=== PATIENT | male | born 1970 | race Caucasian/White ===

== ENCOUNTER 2018-10-22 10:46 | Emergency (ER) | payer MEDICAID ==
[~2018-10-22] VITALS: Ht 193 cm; Wt 92.0 kg
[~2018-10-22 10:46] MED LIST: ALLO100T PO; CLIN-96 PO; FAMO-1 PO; IBUP-1984 PO; NO HOME MEDS
[2018-10-22 10:55] VITALS: BP 115/80
== END 2018-10-22 15:51 | disposition left against medical advice (07) ==
LOC: ER 10:46
DX: R10.9 Unspecified abdominal pain (principal); Z53.21 Procedure and treatment not carried out due to patient leaving prior to being seen by health care provider; Z79.899 Other long term (current) drug therapy

== ENCOUNTER 2018-11-17 21:45 | Emergency (ER) | payer MEDICAID ==
[~2018-11-17] VITALS: Ht 193 cm; Wt 220.0 kg
[2018-11-17] MEDS ORDERED: haloperidol lactate 5mg/ml inj IM ONE (22:05)
[2018-11-17] MEDS ORDERED: ondansetron/PF 4mg/2ml inj IV ONE (22:05)
[2018-11-17] MEDS ORDERED: diphenhydrAMINE 50 mg/ml inj IV ONE (22:05)
[2018-11-17] MEDS ORDERED: normal saline 1000ML IV soln IVB ONE (22:05)
[2018-11-17 22:17] LABS: BASOPHILS % (AUTO) 0.5 % (0-1); EOSINOPHILS % (AUTO) 0.5 % (0-6); HEMATOCRIT 43.6 % (42.0-52.0); HEMOGLOBIN 15.5 g/dl (14.0-17.9); LYMPHOCYTES # (AUTO) 0.7 X10'3 (1.1-4.8); LYMPHOCYTES % (AUTO) 8.9 % (21-51); MEAN CORPUSCULAR HEMOGLOBIN 30.6 PG (27.0-31.0); MEAN CORPUSCULAR HGB CONC 35.5 g/dL (33.0-36.5); MEAN CORPUSCULAR VOLUME 86.2 FL (78-98); MONOCYTES # (AUTO) 0.5 X10'3 (0-0.9); NEUTROPHILS # (AUTO) 6.5 X10'3 (1.8-7.7); NEUTROPHILS % (AUTO) 83.1 % (42-75); PLATELET COUNT 211 X10'3 (140-440); RED BLOOD COUNT 5.06 X10'6 (4.70-6.10); RED CELL DISTRIBUTION WIDTH 14.5 % (11.5-14.5); WHITE BLOOD COUNT 7.8 X10'3 (4.5-11.0)
[2018-11-17 22:29] LABS: ALANINE AMINOTRANSFERASE 20 U/L (12-78); ALBUMIN 3.9 G/DL (3.4-5.0); ALBUMIN/GLOBULIN RATIO 0.9 (1.1-1.5); ALKALINE PHOSPHATASE 101 IU/L (46-116); ANION GAP 6 (8-16); ASPARTATE AMINO TRANSFERASE 13 U/L (10-37); BLOOD UREA NITROGEN 17 MG/DL (7-18); BUN/CREATININE RATIO 16.2 (5.4-32.0); CALCIUM 9.6 MG/DL (8.5-10.1); CHLORIDE 99 MMOL/L (99-107); CREATININE 1.05 MG/DL (0.60-1.10); GLUCOSE 110 MG/DL (70-104); POTASSIUM 3.6 MMOL/L (3.5-5.1); SODIUM 137 MMOL/L (135-145); TOTAL CARBON DIOXIDE 32.1 MMOL/L (24-32); TOTAL PROTEIN 8.1 G/DL (6.4-8.2); eGFR 75 ML/MIN
[2018-11-17 23:05] VITALS: BP 152/71
[2018-11-17] MEDS ORDERED: ONDA4TAB6 PO (23:21)
[2018-11-17] MEDS ORDERED: sucralfate 1gm/10ml UD suspension PO STA (23:24)
[2018-11-17] MEDS ORDERED: mag hydrox/Alum hydrox/simeth 30ml oral suspension PO ONE (23:25)
[2018-11-17] MEDS ORDERED: LIDOcaine Viscous 15ml cup PO ONE (23:25)
--- NOTE | 2018-11-17 23:40 | NUR ---
VOMITED AFTER HE DRANK ABOUT 1/2 OF THE COCKTAIL, WENT TO BEDSIDE
[2018-11-17] MEDS ORDERED: proCHLORperazine 10 MG/2 ml inj IV STA (23:41)
[2018-11-17] MEDS ORDERED: morphine 4 MG/ML inj SYRINge IM STA (23:41)
[2018-11-17] MEDS ORDERED: morphine 4 MG/ML inj SYRINge IV STA (23:46)
== END 2018-11-17 23:59 | disposition home or self-care (01) ==
LOC: ER 21:45
DX: K22.6 Gastro-esophageal laceration-hemorrhage syndrome (principal); R11.2 Nausea with vomiting, unspecified; G89.29 Other chronic pain; F12.90 Cannabis use, unspecified, uncomplicated; F15.90 Other stimulant use, unspecified, uncomplicated; Z79.2 Long term (current) use of antibiotics; Z79.899 Other long term (current) drug therapy; Z56.0 Unemployment, unspecified
CPT/HCPCS: 36415; 80053; 85025; 85610; 86885; 86900; 86901; 96372; 96374; 96375; 99283; J0780; J1200; J1630; J2270; J2405; J7030

== ENCOUNTER 2019-01-18 02:35 | Inpatient (IN) | payer MEDICAID ==
[~2019-01-18] VITALS: Ht 193 cm; Wt 86.4 kg
[~2019-01-18 02:35] MED LIST changes: +ONDA4TAB6 PO
[2019-01-18] MEDS ORDERED: HYDROcodone/acetaminophen 5mg/325mg tablet PO ONE (03:20)
[2019-01-18 03:47] LABS: ALANINE AMINOTRANSFERASE 16 U/L (12-78); ALBUMIN 3.7 G/DL (3.4-5.0); ALBUMIN/GLOBULIN RATIO 0.7 (1.1-1.5); ALKALINE PHOSPHATASE 110 IU/L (46-116); ANION GAP 8 (8-16); ASPARTATE AMINO TRANSFERASE 16 U/L (10-37); BILIRUBIN,TOTAL 1.1 MG/DL (0.1-1.0); BLOOD UREA NITROGEN 19 MG/DL (7-18); BUN/CREATININE RATIO 17.9 (5.4-32.0); CALCIUM 9.8 MG/DL (8.5-10.1); CHLORIDE 93 MMOL/L (99-107); CREATININE 1.06 MG/DL (0.60-1.10); GLUCOSE 108 MG/DL (70-104); POTASSIUM 3.2 MMOL/L (3.5-5.1); SODIUM 133 MMOL/L (135-145); TOTAL CARBON DIOXIDE 31.8 MMOL/L (24-32); eGFR 74 ML/MIN
[2019-01-18] MEDS ORDERED: potassium Cl 20 mEq SR tablet PO ONE (03:55)
[2019-01-18 04:16] LABS: BASOPHILS % (AUTO) 0.4 % (0-1); EOSINOPHILS % (AUTO) 0.4 % (0-6); HEMATOCRIT 42.6 % (42.0-52.0); HEMOGLOBIN 14.3 g/dl (14.0-17.9); LYMPHOCYTES # (AUTO) 0.8 X10'3 (1.1-4.8); LYMPHOCYTES % (AUTO) 9.8 % (21-51); MEAN CORPUSCULAR HEMOGLOBIN 29.2 PG (27.0-31.0); MEAN CORPUSCULAR HGB CONC 33.6 g/dL (33.0-36.5); MEAN CORPUSCULAR VOLUME 86.8 FL (78-98); MEAN PLATELET VOLUME 9.6 FL (7.4-10.4); MONOCYTES # (AUTO) 0.8 X10'3 (0-0.9); MONOCYTES % (AUTO) 9.2 % (2-12); NEUTROPHILS # (AUTO) 6.7 X10'3 (1.8-7.7); NEUTROPHILS % (AUTO) 80.2 % (42-75); PLATELET COUNT 266 X10'3 (140-440); RED BLOOD COUNT 4.91 X10'6 (4.70-6.10); RED CELL DISTRIBUTION WIDTH 14.4 % (11.5-14.5); WHITE BLOOD COUNT 8.3 X10'3 (4.5-11.0)
--- NOTE | 2019-01-18 04:17 | NUR ---
PT VERY DRAMATICALLY REFUSED POTASSIUM PO. PLACED IN MOUTH AND THEN SPIT IT OUT ALL OVER THE ROOM. MD CARPENTER NOTIFIED. ALSO ASKED FOR URINE SAMPLE AND INFORMED HIM THAT HIS BLADDER APPEARED FULL UPON CT
[2019-01-18 04:54] LABS: CLARITY,URINE SLIGHTLY CLOUDY (Clear); COLOR,URINE YELLOW (Yellow); GLUCOSE, URINE NEGATIVE (Neg); KETONES,URINE NEGATIVE (Neg); LEUKOCYTE ESTERASE ,URINE TRACE (Neg); NITRITES, URINE NEGATIVE (Neg); OCCULT BLOOD,URINE TRACE-INTACT (Neg); PH,URINE 5.5 (4.8-8.0); PROTEIN,URINE TRACE mg/dl (Neg)
[2019-01-18 05:05] LABS: UA COLLECTION TYPE CLN CATCH MIDSTREAM
[2019-01-18 05:09] LABS: MUCUS STRANDS MANY /LPF (Neg); SQUAMOUS EPITHELIAL CELL,UR MODERATE /LPF (FEW)
[2019-01-18 05:11] LABS: BACTERIA,URINE FEW /HPF (Neg)
[2019-01-18] MEDS ORDERED: piperacillin/tazo 3.375gm/50ml 50 ML IV ONE (05:25)
[2019-01-18] MEDS ORDERED: normal saline 1000ML IV soln IV ONE (05:25)
[2019-01-18] MEDS ORDERED: ondansetron/PF 4mg/2ml inj IV ONE (05:30)
[2019-01-18] MEDS: morphine 4 MG/ML inj SYRINge IV PRN ×2 (05:42→07:48)
--- NOTE | 2019-01-18 06:00 | NUR ---
WHEN ASKED PT IF HE TAKES ANY HOME MEDS, PT STATES "METH." NOT ADDED TO MED REC
[2019-01-18] MEDS ORDERED: diatrozoate meglu/diatrozoate sod (37% iodine) 120ML oral solution PO ONE (06:10)
[2019-01-18] MEDS ORDERED: diatr meglu/diatrizoate 30ml oral sol.-(3 dose) bottle PO ONE (06:10)
[2019-01-18] MEDS ORDERED: pantoprazole 40 MG vial IV ONE (07:15)
[2019-01-18] MEDS ORDERED: ESOMEPRAZOLE 40 MG VIAL IV ONE (07:20)
--- NOTE | 2019-01-18 08:32 | NUR ---
ASSUMED CARE OF PT FROM ER. DID 2 NURSE SKIN CHECK, TECH CURRENTLY TAKING V/S. FILLED OUT PT BOARD
[2019-01-18 08:34] VITALS: BP 97/70
--- NOTE | 2019-01-18 08:39 | NUR ---
PT'S BP IS 97/70. QUESTIONED PT ABOUT THIS. HE STATES HIS BP IS ALWAYS NORMAL. THEN HE STATES HE HAS NOT SEEM A DR IN 3 YEARS. I ASKED PT IF HE FEELS DIZZY SOMETIMES. HE STATES YES! ALL THE TIME. SOMETIMES WHEN I GET UP I ALMOST PASS OUT AND AT BEDSIDE STATES SOEMTIMES HE DOES PASS OUT. WILL NOTIFY HOSPITALIST
--- NOTE | 2019-01-18 08:43 | NUR ---
WILL KEEP PT NPO UNTIL I CAN REACH HOSPITALIST. PT HAD CT WITH CONTRAST WAITING FOR RESULTS.
[2019-01-18] MEDS: normal saline 1000ml 1,000 ML IV SCH ×2 (09:17→21:10)
[2019-01-18] MEDS ORDERED: magnesium 2GM in 50ml NS 50 ML IV PRN (09:20)
[2019-01-18] MEDS ORDERED: potassium Cl 20 mEq SR tablet PO PRN ×2 (09:20)
[2019-01-18] MEDS ORDERED: potassium CL 10mEq/100ml bag 100 ML IV PRN ×2 (09:20)
[2019-01-18] MEDS ORDERED: magnesium 4gm in 100ml NS 100 ML IV PRN (09:20)
[2019-01-18] MEDS ORDERED: magnesium Cl slow-release 64mg tablet PO PRN (09:20)
[2019-01-18] MEDS ORDERED: acetaminophen 650mg rectal suppository RC PRN (09:20)
[2019-01-18] MEDS ORDERED: ondansetron/PF 4mg/2ml inj IV PRN (09:20)
[2019-01-18 11:00] VITALS: BP 95/55
[2019-01-18] MEDS: pantoprazole 40MG/NS 100ML BAG 100 ML IV SCH ×3 (12:31→22:21)
[2019-01-18] MEDS: morphine 2 MG/ML inj. syringe IV PRN ×2 (12:41→16:43)
--- NOTE | 2019-01-18 12:45 | NUR ---
MEDICATED FOR PAIN 01/14. WILL MONITOR
[2019-01-18] MEDS: K and/or MAG REPLACEMENT MC SCH (14:31)
[2019-01-18] MEDS: nicotine 14mg patch - 24hr TD SCH (16:43)
--- NOTE | 2019-01-18 18:18 | NUR ---
GAVE REPORT TO NORMA TAPIA
--- NOTE | 2019-01-18 18:52 | NUR ---
Patient in room [facility]. I have received report from Dilcia Bauer and had the opportunity to ask questions and assume patient care. Addendum: 01/18/19 at 1853 by Daina Nixon RN Amended: Links added.
[2019-01-18 20:00] VITALS: BP 85/47
--- NOTE | 2019-01-18 20:00 | NUR ---
pt resting eyes closed at bedside.
--- NOTE | 2019-01-18 22:00 | NUR ---
pt resting no s&s of distress at this time.
[2019-01-19] VITALS: BP 83/50
[2019-01-19] MEDS: morphine 2 MG/ML inj. syringe IV PRN ×2 (00:14→09:00)
--- NOTE | 2019-01-19 00:22 | NUR ---
pr awoke voided 600cc in the urinal then medicated for pain with morphine.
--- NOTE | 2019-01-19 01:10 | NUR ---
called Dr Quiñones regarding pt's low bp and potassium of 3.2. orders received for iv bolus and replacement.
[2019-01-19] MEDS ORDERED: normal saline 1000ml 1,000 ML IV ONE (01:15)
[2019-01-19] MEDS ORDERED: magnesium Cl slow-release 64mg tablet PO PRN (01:15)
[2019-01-19] MEDS ORDERED: potassium Cl 20 mEq SR tablet PO PRN ×2 (01:15)
[2019-01-19 02:20] LABS: ALBUMIN 2.4 G/DL (3.4-5.0); ANION GAP 7 (8-16); BLOOD UREA NITROGEN 15 MG/DL (7-18); BUN/CREATININE RATIO 18.3 (5.4-32.0); CALCIUM 8.5 MG/DL (8.5-10.1); CHLORIDE 106 MMOL/L (99-107); CREATININE 0.82 MG/DL (0.60-1.10); GLUCOSE 70 MG/DL (70-104); POTASSIUM 3.7 MMOL/L (3.5-5.1); SODIUM 138 MMOL/L (135-145); TOTAL CARBON DIOXIDE 24.7 MMOL/L (24-32); eGFR > 90 ML/MIN
[2019-01-19 02:29] LABS: BASOPHILS % (AUTO) 0.8 % (0-1); EOSINOPHILS % (AUTO) 1.2 % (0-6); HEMATOCRIT 33.1 % (42.0-52.0); HEMOGLOBIN 11.2 g/dl (14.0-17.9); LYMPHOCYTES # (AUTO) 0.8 X10'3 (1.1-4.8); LYMPHOCYTES % (AUTO) 19.3 % (21-51); MEAN CORPUSCULAR HEMOGLOBIN 29.2 PG (27.0-31.0); MEAN CORPUSCULAR HGB CONC 33.7 g/dL (33.0-36.5); MEAN CORPUSCULAR VOLUME 86.7 FL (78-98); MEAN PLATELET VOLUME 9.3 FL (7.4-10.4); MONOCYTES # (AUTO) 0.4 X10'3 (0-0.9); MONOCYTES % (AUTO) 8.6 % (2-12); NEUTROPHILS # (AUTO) 2.9 X10'3 (1.8-7.7); NEUTROPHILS % (AUTO) 70.1 % (42-75); PLATELET COUNT 149 X10'3 (140-440); RED BLOOD COUNT 3.82 X10'6 (4.70-6.10); RED CELL DISTRIBUTION WIDTH 14.2 % (11.5-14.5); WHITE BLOOD COUNT 4.1 X10'3 (4.5-11.0)
--- NOTE | 2019-01-19 03:00 | NUR ---
resting eyes closed without changes.
[2019-01-19] MEDS: pantoprazole 40MG/NS 100ML BAG 100 ML IV SCH ×5 (03:11→19:54)
--- NOTE | 2019-01-19 04:32 | NUR ---
remains resting without change.
[2019-01-19] MEDS: normal saline 1000ml 1,000 ML IV SCH ×2 (05:17→09:11)
--- NOTE | 2019-01-19 05:22 | NUR ---
pt resting eyes closed without changes.
--- NOTE | 2019-01-19 06:20 | NUR ---
Problems reprioritized. Patient report given, questions answered & plan of care reviewed with Gloria Bauer. Addendum: 01/19/19 at 0621 by Daina Nixon RN Amended: Links added.
--- NOTE | 2019-01-19 06:21 | NUR ---
pt admit done endorced MRSA swab to be done by day Rn in report.
--- NOTE | 2019-01-19 06:30 | NUR ---
Patient in room [facility]. I have received report from Mishel TAPIA and had the opportunity to ask questions and assume patient care.
[2019-01-19 07:00] VITALS: BP 104/57
[2019-01-19] MEDS: K and/or MAG REPLACEMENT MC SCH (08:00)
[2019-01-19] MEDS: nicotine 14mg patch - 24hr TD SCH (08:54)
[2019-01-19 11:00] VITALS: BP 98/52
[2019-01-19] MEDS ORDERED: levoFLOXACIN-Levaquin 500mg/D5 100 ML IV SCH (11:50)
--- NOTE | 2019-01-19 13:10 | NUR ---
Went to hang patients IV antibiotics per Md orders and patient was sticking something in his mouth. When I asked patient if he was eating he stated no. I did find out patient was eating a mint I educated patient on the reason why he is not eating anything at this time and at bedside. Per patient has been drinking water today. I again educated patient and encouraged him not to be eating and when Dr Kapoor does his rounds we will ask if he can get a diet ordered. Patient verbalized understanding.
--- NOTE | 2019-01-19 13:39 | NUR ---
Malnutrition/calorie count consults: Pt admit w/ localized small bowel perforation in first or second portion of duodenum per MD note. Hx GERD and prior perforated pyloric ulcer. Per MD note non-surgical management at this time w/ IV PPI. Pt has been NPO since admit; DEMETRIUS d/w RN who reports calorie count not indicated at this time and pt is tall slender man but appears healthy weight. Pt has no edema, wounds, weakness, and all prior wts pt stated. At this time pt does not meet minimum malnutrition criteria. Will continue to monitor. Addendum: 01/19/19 at [address] Amended: Links added.
[2019-01-19] MEDS: piperacillin/tazo 3.375gm/50ml 50 ML IV SCH ×2 (16:00→16:08)
--- NOTE | 2019-01-19 16:27 | NUR ---
Patients 1435 dose hung at 1600. 1600 dose not ran since pharmacy did not get dose up here until late.
--- NOTE | 2019-01-19 18:39 | NUR ---
Problems reprioritized. Patient report given, questions answered & plan of care reviewed with Mishel TAPIA.
--- NOTE | 2019-01-19 18:47 | NUR ---
Patient in room [facility]. I have received report from Gloria Bauer and had the opportunity to ask questions and assume patient care. Addendum: 01/19/19 at 1847 by Daina Nixon RN Amended: Links added.
[2019-01-19 19:31] VITALS: BP 100/63
[2019-01-19] MEDS: lactobacillus rhamnosus 10,000 MMU CELLS/CAPSULE PO SCH (22:34)
[2019-01-20 00:24] VITALS: BP 104/69
[2019-01-20] MEDS: piperacillin/tazo 3.375gm/50ml 50 ML IV SCH ×2 (00:30→08:05)
--- NOTE | 2019-01-20 00:31 | NUR ---
pt a/o denies pain awoke briefly at this time.
[2019-01-20] MEDS: pantoprazole 40MG/NS 100ML BAG 100 ML IV SCH ×2 (00:51→06:54)
[2019-01-20] MEDS: normal saline 1000ml 1,000 ML IV SCH (01:17)
--- NOTE | 2019-01-20 02:53 | NUR ---
pt resting eyes closed without changes at this time.
--- NOTE | 2019-01-20 04:23 | NUR ---
resting eyes closed without changes or s&s of distress at this time.
[2019-01-20 05:14] LABS: EOSINOPHILS # (AUTO) 0.1 X10'3 (0-0.9); MEAN PLATELET VOLUME 9.4 FL (7.4-10.4); MONOCYTES # (AUTO) 0.3 X10'3 (0-0.9); WHITE BLOOD COUNT 3.3 X10'3 (4.5-11.0)
[2019-01-20 05:16] LABS: BASOPHILS % (AUTO) 0.9 % (0-1); EOSINOPHILS % (AUTO) 1.8 % (0-6); HEMATOCRIT 36.2 % (42.0-52.0); HEMOGLOBIN 12.2 g/dl (14.0-17.9); LYMPHOCYTES % (AUTO) 29.6 % (21-51); MEAN CORPUSCULAR HGB CONC 33.8 g/dL (33.0-36.5); MEAN CORPUSCULAR VOLUME 85.7 FL (78-98); MONOCYTES % (AUTO) 8.7 % (2-12); NEUTROPHILS # (AUTO) 1.9 X10'3 (1.8-7.7); PLATELET COUNT 167 X10'3 (140-440); RED BLOOD COUNT 4.22 X10'6 (4.70-6.10); RED CELL DISTRIBUTION WIDTH 14.1 % (11.5-14.5)
[2019-01-20 05:27] LABS: ALBUMIN 2.5 G/DL (3.4-5.0); ANION GAP 7 (8-16); BLOOD UREA NITROGEN 10 MG/DL (7-18); CALCIUM 8.6 MG/DL (8.5-10.1); CHLORIDE 106 MMOL/L (99-107); CREATININE 0.91 MG/DL (0.60-1.10); GLUCOSE 79 MG/DL (70-104); POTASSIUM 3.5 MMOL/L (3.5-5.1); SODIUM 139 MMOL/L (135-145); TOTAL CARBON DIOXIDE 26.1 MMOL/L (24-32); eGFR 88 ML/MIN
--- NOTE | 2019-01-20 05:52 | NUR ---
resting no changes.
--- NOTE | 2019-01-20 06:50 | NUR ---
Problems reprioritized. Patient report given, questions answered & plan of care reviewed with Yessi Bauer. Addendum: 01/20/19 at 0650 by Daina Nixon RN Amended: Links added.
--- NOTE | 2019-01-20 06:53 | NUR ---
Patient in room [facility]. I have received report from Daina TAPIA and had the opportunity to ask questions and assume patient care.
[2019-01-20 07:00] VITALS: BP 103/64
[2019-01-20] MEDS: lactobacillus rhamnosus 10,000 MMU CELLS/CAPSULE PO SCH (08:05)
[2019-01-20] MEDS: nicotine 14mg patch - 24hr TD SCH (08:06)
[2019-01-20] MEDS: K and/or MAG REPLACEMENT MC SCH (08:09)
[2019-01-20] MEDS: pantoprazole 40mg Tablet.DR PO SCH (10:56)
[2019-01-20 11:00] VITALS: BP 99/66
[2019-01-20] MEDS: amoxicillin 250mg capsule PO SCH (16:24)
--- NOTE | 2019-01-20 18:24 | NUR ---
Problems reprioritized. Patient report given, questions answered & plan of care reviewed with Alfred TAPIA.
[2019-01-20 18:40] VITALS: BP 115/70
[2019-01-20] MEDS: clarithromycin 250mg tablet PO SCH (20:43)
[2019-01-21] VITALS: BP 104/74
[2019-01-21] MEDS: amoxicillin 250mg capsule PO SCH ×2 (00:07→07:39)
[2019-01-21 05:18] LABS: BASOPHILS % (AUTO) 1.1 % (0-1); EOSINOPHILS # (AUTO) 0.1 X10'3 (0-0.9); HEMATOCRIT 35.4 % (42.0-52.0); HEMOGLOBIN 12.3 g/dl (14.0-17.9); LYMPHOCYTES % (AUTO) 31.1 % (21-51); MEAN CORPUSCULAR HEMOGLOBIN 29.2 PG (27.0-31.0); MEAN CORPUSCULAR HGB CONC 34.7 g/dL (33.0-36.5); MEAN CORPUSCULAR VOLUME 84.2 FL (78-98); MEAN PLATELET VOLUME 9.6 FL (7.4-10.4); MONOCYTES # (AUTO) 0.4 X10'3 (0-0.9); MONOCYTES % (AUTO) 10.7 % (2-12); NEUTROPHILS # (AUTO) 1.8 X10'3 (1.8-7.7); NEUTROPHILS % (AUTO) 55.1 % (42-75); PLATELET COUNT 188 X10'3 (140-440); RED CELL DISTRIBUTION WIDTH 14.1 % (11.5-14.5); WHITE BLOOD COUNT 3.3 X10'3 (4.5-11.0)
[2019-01-21 05:29] LABS: ALBUMIN 2.7 G/DL (3.4-5.0); ANION GAP 7 (8-16); BLOOD UREA NITROGEN 5 MG/DL (7-18); BUN/CREATININE RATIO 6.1 (5.4-32.0); CALCIUM 9.3 MG/DL (8.5-10.1); CHLORIDE 106 MMOL/L (99-107); CREATININE 0.82 MG/DL (0.60-1.10); GLUCOSE 86 MG/DL (70-104); MAGNESIUM 2.1 MG/DL (1.5-2.4); POTASSIUM 3.3 MMOL/L (3.5-5.1); SODIUM 140 MMOL/L (135-145); TOTAL CARBON DIOXIDE 26.7 MMOL/L (24-32); eGFR > 90 ML/MIN
--- NOTE | 2019-01-21 06:44 | NUR ---
Problems reprioritized. Patient report given, questions answered & plan of care reviewed with JASSON. Addendum: 01/21/19 at 0644 by Poncho Manzanares RN Amended: Links added.
[2019-01-21 07:00] VITALS: BP 104/67
[2019-01-21] MEDS: K and/or MAG REPLACEMENT MC SCH (07:38)
[2019-01-21] MEDS: clarithromycin 250mg tablet PO SCH (07:39)
[2019-01-21] MEDS: pantoprazole 40mg Tablet.DR PO SCH (07:39)
[2019-01-21] MEDS: nicotine 14mg patch - 24hr TD SCH (07:40)
--- NOTE | 2019-01-21 10:02 | NUR ---
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 Pt on PPIs for tx. Pt on a full liquid diet with documented 100% PO intake. Pt with no N/V per MD notes. LB 01/20. No edema or wounds. No nutrition diagnosis at this time. Will continue to follow. Recommendations: 1) Advance to regular diet as medically indicated 2) Wt per rx Addendum: 01/21/19 at [address] Amended: Links added.
[2019-01-21 11:00] VITALS: BP 98/62
[2019-01-21] MEDS ORDERED: AMO250C PO (11:01)
[2019-01-21] MEDS ORDERED: PANT40TA4 PO (11:01)
[2019-01-21] MEDS ORDERED: CLAR250T39 PO (11:01)
--- NOTE | 2019-01-21 16:39 | NUR ---
Patient discharged home via girlfriend and ambulated off of the unit. Patient was alert and oriented and in no apparent distress at time of discharge. Patient PIVs removed with canula intact. Patient was waiting for ride for several hours and therefore left after the two hours from time of order. Patient took all belongings with him including new medication that was given with Felix's bedside delivery. Patient stated an understanding of discharge instructions and was given time for question and answers. patient K was 3.3 this AM and was given 40 mEq of K-dur tablets today.
== END 2019-01-21 15:00 | disposition home or self-care (01) | DRG 241 ==
LOC: ER 02:35 → SUR 3N 08:01
PROVIDERS: ADMIT Internal Medicine; ATTEND Family Medicine
DX: K25.5 Chronic or unspecified gastric ulcer with perforation (principal); E87.6 Hypokalemia; F12.90 Cannabis use, unspecified, uncomplicated; K21.9 Gastro-esophageal reflux disease without esophagitis; K43.2 Incisional hernia without obstruction or gangrene; F17.220 Nicotine dependence, chewing tobacco, uncomplicated; G89.29 Other chronic pain; F15.90 Other stimulant use, unspecified, uncomplicated
CPT/HCPCS: 36415; 74150; 74176; 80048; 80053; 81001; 83605; 83735; 85025; 85610; 86885; 86900; 86901; 87040; 87081; 87088; 96365; 96375; 99285; C9113; G0378; J1956; J2270; J2405; J2543; J3480; J7030; Q9963

== ENCOUNTER 2019-02-23 05:48 | Emergency (ER) | payer MEDICAID ==
[~2019-02-23] VITALS: Ht 193 cm; Wt 100.0 kg
[~2019-02-23 05:48] MED LIST changes: -ALLO100T PO; +AMO250C PO; +CLAR250T39 PO; -CLIN-96 PO; -FAMO-1 PO; -IBUP-1984 PO; -NO HOME MEDS; -ONDA4TAB6 PO; +PANT40TA4 PO
[2019-02-23] MEDS ORDERED: normal saline 1000ML IV soln IVB ONE (06:30)
[2019-02-23] MEDS ORDERED: ondansetron/PF 4mg/2ml inj IV ONE (06:30)
[2019-02-23] MEDS: diatr meglu/diatrizoate 30ml oral sol.-(3 dose) bottle PO SCH ×3 (06:44→08:10)
[2019-02-23] MEDS: morphine 4 MG/ML inj SYRINge IV PRN ×2 (06:59→08:16)
[2019-02-23 07:20] LABS: BASOPHILS % (AUTO) 0.5 % (0-1); EOSINOPHILS % (AUTO) 0.1 % (0-6); HEMATOCRIT 44.1 % (42.0-52.0); HEMOGLOBIN 14.8 g/dl (14.0-17.9); LYMPHOCYTES # (AUTO) 0.6 X10'3 (1.1-4.8); LYMPHOCYTES % (AUTO) 7.8 % (21-51); MEAN CORPUSCULAR HEMOGLOBIN 29.3 PG (27.0-31.0); MEAN CORPUSCULAR HGB CONC 33.7 g/dL (33.0-36.5); MEAN CORPUSCULAR VOLUME 86.9 FL (78-98); MONOCYTES # (AUTO) 0.5 X10'3 (0-0.9); NEUTROPHILS # (AUTO) 6.8 X10'3 (1.8-7.7); NEUTROPHILS % (AUTO) 85.6 % (42-75); PLATELET COUNT 216 X10'3 (140-440); RED BLOOD COUNT 5.07 X10'6 (4.70-6.10); RED CELL DISTRIBUTION WIDTH 15.8 % (11.5-14.5)
[2019-02-23 07:35] LABS: ALANINE AMINOTRANSFERASE 27 U/L (12-78); ALBUMIN 4.1 G/DL (3.4-5.0); ALKALINE PHOSPHATASE 98 IU/L (46-116); ANION GAP 11 (8-16); ASPARTATE AMINO TRANSFERASE 24 U/L (10-37); BILIRUBIN,TOTAL 0.8 MG/DL (0.1-1.0); BLOOD UREA NITROGEN 14 MG/DL (7-18); BUN/CREATININE RATIO 15.2 (5.4-32.0); CALCIUM 9.9 MG/DL (8.5-10.1); CHLORIDE 101 MMOL/L (99-107); CREATININE 0.92 MG/DL (0.60-1.10); GLUCOSE 109 MG/DL (70-104); LIPASE 78 U/L (73-393); POTASSIUM 4.2 MMOL/L (3.5-5.1); SODIUM 141 MMOL/L (135-145); TOTAL CARBON DIOXIDE 29.5 MMOL/L (24-32); TOTAL PROTEIN 8.4 G/DL (6.4-8.2); eGFR 87 ML/MIN
[2019-02-23] MEDS ORDERED: iohexol 300mg/ml 100ml inj. ONE (08:21)
--- NOTE | 2019-02-23 08:25 | NUR ---
pt out to ct via robby with abstract clerk
[2019-02-23 08:31] LABS: CLARITY,URINE CLEAR (Clear); COLOR,URINE YELLOW (Yellow); GLUCOSE, URINE NEGATIVE (Neg); KETONES,URINE >=80 mg/dl (Neg); LEUKOCYTE ESTERASE ,URINE NEGATIVE (Neg); NITRITES, URINE NEGATIVE (Neg); OCCULT BLOOD,URINE TRACE-INTACT (Neg); PH,URINE 6.5 (4.8-8.0); PROTEIN,URINE TRACE mg/dl (Neg)
[2019-02-23 08:37] LABS: UA COLLECTION TYPE URINAL
[2019-02-23 08:44] LABS: SQUAMOUS EPITHELIAL CELL,UR MODERATE /LPF (FEW)
[2019-02-23 08:45] LABS: BACTERIA,URINE FEW /HPF (Neg); HYALINE CASTS 0-3 /LPF (NEGATIVE); RBC,URINE 0-2 /HPF (0-2); WBC,URINE 0-4 /HPF (0-4)
--- NOTE | 2019-02-23 08:51 | NUR ---
pt returns from ct
[2019-02-23] MEDS ORDERED: PANT-47 PO (09:16)
[2019-02-23] MEDS ORDERED: acetaminophen 325mg tablet PO ONE (09:30)
[2019-02-23 09:32] VITALS: BP 134/79
[2019-04-02] MEDS ORDERED: PANT-47 PO (13:58)
== END 2019-02-23 09:34 | disposition home or self-care (01) ==
LOC: ER 05:49
DX: K43.9 Ventral hernia without obstruction or gangrene (principal); R11.2 Nausea with vomiting, unspecified; K21.9 Gastro-esophageal reflux disease without esophagitis; G89.29 Other chronic pain; F17.220 Nicotine dependence, chewing tobacco, uncomplicated; F12.90 Cannabis use, unspecified, uncomplicated; F15.90 Other stimulant use, unspecified, uncomplicated; F10.99 Alcohol use, unspecified with unspecified alcohol-induced disorder; Z98.890 Other specified postprocedural states; Z56.0 Unemployment, unspecified; Z79.899 Other long term (current) drug therapy; Y90.9 Presence of alcohol in blood, level not specified
CPT/HCPCS: 36415; 74177; 80053; 81001; 83690; 85025; 85610; 96361; 96374; 96375; 96376; 99284; J2270; J2405; J7030; Q9963; Q9967

== ENCOUNTER 2019-04-07 05:29 | Day surgery (SDC) | payer MEDICAID ==
[2019-04-02 14:06] LABS: EOSINOPHILS # (AUTO) 0.1 X10'3 (0-0.9); EOSINOPHILS % (AUTO) 2.3 % (0-6); LYMPHOCYTES # (AUTO) 0.9 X10'3 (1.1-4.8); LYMPHOCYTES % (AUTO) 17.7 % (21-51); MEAN CORPUSCULAR HEMOGLOBIN 29.2 PG (27.0-31.0); MEAN CORPUSCULAR HGB CONC 33.1 g/dL (33.0-36.5); MEAN CORPUSCULAR VOLUME 88.2 FL (78-98); MEAN PLATELET VOLUME 8.5 FL (7.4-10.4); MONOCYTES # (AUTO) 0.6 X10'3 (0-0.9); MONOCYTES % (AUTO) 11.3 % (2-12); NEUTROPHILS # (AUTO) 3.4 X10'3 (1.8-7.7); NEUTROPHILS % (AUTO) 67.7 % (42-75); PRE OP HEMATOCRIT 39.6 % (42.0-52.0); PRE OP HEMOGLOBIN 13.1 g/dL (14.0-17.9); PRE OP PLATELET COUNT 171 X10'3 (140-440); RED BLOOD COUNT 4.49 X10'6 (4.70-6.10); RED CELL DISTRIBUTION WIDTH 15.6 % (11.5-14.5)
[2019-04-02 14:20] LABS: ALBUMIN 3.7 G/DL (3.4-5.0); ALKALINE PHOSPHATASE 70 IU/L (46-116); BLOOD UREA NITROGEN 18 MG/DL (7-18); BUN/CREATININE RATIO 21.7 (5.4-32.0); CALCIUM 9.7 MG/DL (8.5-10.1); CHLORIDE 106 MMOL/L (99-107); CREATININE 0.83 MG/DL (0.60-1.10); PRE OP ALT 19 U/L (30-65); PRE OP ANION GAP 5 (8-16); PRE OP AST 15 U/L (10-37); PRE OP BILIRUB, TOTAL 0.4 MG/DL (0.0-1.0); PRE OP GLUCOSE 91 MG/DL (70-104); PRE OP POTASSIUM 4.6 MMOL/L (3.4-5.1); PRE OP SODIUM 142 MMOL/L (135-145); TOTAL PROTEIN 7.4 G/DL (6.4-8.2); eGFR > 90 ML/MIN
[~2019-04-07] VITALS: Ht 162.6 cm; Wt 89.0 kg
[2019-04-07] VITALS (12 sets, daily range): BP systolic 122–143; BP diastolic 76–98
[~2019-04-07 05:29] MED LIST changes: -AMO250C PO; -CLAR250T39 PO; +PANT-47 PO; -PANT40TA4 PO
[2019-04-07] MEDS ORDERED: ringers solution, lacted 1,000 ML IV SCH ×2 (05:30→08:00)
[2019-04-07] MEDS ORDERED: cefazolin/dext.iso 2gm/50ml 50 ML IV ONE (05:30)
[2019-04-07] MEDS ORDERED: famotidine 20mg tablet PO ONE (05:30)
[2019-04-07] MEDS ORDERED: LIDOcaine 1% (10mg/ml) 2ml vial ONE (06:05)
[2019-04-07] MEDS ORDERED: ketorolac trometh. 30mg/ml inj. ONE (06:34)
[2019-04-07] MEDS ORDERED: ROPIVAcaine 0.5% (5mg/ml) 30ml vial ONE (06:34)
[2019-04-07] MEDS ORDERED: LIDOcaine 1% 30ml preserv. free vial ONE (06:43)
[2019-04-07] MEDS ORDERED: BUPIVAcaine/PF 2.5 mg/ml (0.25%) 30ml vial ONE (06:43)
[2019-04-07] MEDS ORDERED: fentaNYL/PF 50MCG/1 ML 2ML syringe ONE ×3 (07:18→08:02)
[2019-04-07] MEDS ORDERED: midazolam 2 mg/2 ml injection ONE (07:18)
[2019-04-07] MEDS ORDERED: sevoflurane 250ml liquid IH ONE (07:19)
[2019-04-07] MEDS ORDERED: glycopyrrolate 0.2mg/ml inj ONE (07:19)
[2019-04-07] MEDS ORDERED: rocuronium 10mg/ml inj IV ONE ×2 (07:19→07:22)
[2019-04-07] MEDS ORDERED: LIDOcaine 2% (20mg/ml) 5ml vial ONE (07:22)
[2019-04-07] MEDS ORDERED: propofol inj 20 ML IV ONE (07:22)
[2019-04-07] MEDS ORDERED: ondansetron/PF 4mg/2ml inj IV PRN (08:00)
[2019-04-07] MEDS ORDERED: proCHLORperazine 10 MG/2 ml inj IV PRN (08:00)
[2019-04-07] MEDS ORDERED: meperidine/PF 25mg/ml syringe IV PRN ×2 (08:00)
[2019-04-07] MEDS ORDERED: morphine 4 MG/ML inj SYRINge IV PRN ×2 (08:00)
[2019-04-07] MEDS ORDERED: sugammadex 200mg/2ml injection IV ONE (09:22)
--- NOTE | 2019-04-07 09:50 | NUR ---
Received from OR via BED , accompanied by Anesthesiologist DR JAMES and report given by Anesthesiolgist. PATIENT WAKING UP, NO S/S OF PAIN, V/S WNL, NEUROVASCULAR CHECKS INTACT, 20G PIV RUE, SCD ON, 4 BANDAIDS TO LAP SIGHTS OF ABDOMEN CDI WITH ABDOMINAL BINDER ON.
[2019-04-07] MEDS: meperidine/PF 25mg/ml syringe IV PRN ×2 (10:08→10:18)
[2019-04-07] MEDS ORDERED: dexamethasone sod phosphate 4mg/ml inj. ONE (10:10)
[2019-04-07] MEDS ORDERED: ondansetron/PF 4mg/2ml inj ONE (10:10)
[2019-04-07] MEDS ORDERED: oxyCODONE/APAP 10/325mg tablet PO ONE (10:15)
--- NOTE | 2019-04-07 11:30 | NUR ---
PATIENT A&OX4, DENIES PAIN, V/S WNL, NEUROVASCULAR CHECKS INTACT, 20G PIV RUE D/C, SCD OFF, 4 BANDAIDS TO LAP SIGHTS OF ABDOMEN CDI W/ ABDOMINAL BINDER ON. I HAVE REVIEWED D/C INSTRUCTIONS WITH PATIENT AND FAMILY HAVE VERBALIZED UNDERSTANDING. SCRIPTS GIVEN FOR PAIN MEDS. PATIENT WAS D/C HOME WITH ALL BELONGINGS AND FAMILY GAVE TRANSPORT HOME.
== END 2019-04-07 11:30 | disposition home or self-care (01) ==
LOC: PAS 05:29
PROVIDERS: ATTEND Surgery
DX: K43.0 Incisional hernia with obstruction, without gangrene (principal); M10.9 Gout, unspecified; F17.290 Nicotine dependence, other tobacco product, uncomplicated; Z79.899 Other long term (current) drug therapy; Z87.11 Personal history of peptic ulcer disease; Z80.9 Family history of malignant neoplasm, unspecified
CPT/HCPCS: 36415; 49655; 80053; 82948; 85025; 93005; C1781; C9399; J1100; J1885; J2001; J2175; J2250; J2405; J2704; J3010; J3490; J7120; S2900; A4215; A4618; J2795

== ENCOUNTER 2019-04-16 22:55 | Inpatient (IN) | payer MEDICAID ==
[~2019-04-16] VITALS: Ht 193 cm; Wt 90.9 kg
[2019-04-16] MEDS ORDERED: vancomycin/NS 1 GM ADD-VANTAGE 250 ML IV ONE (23:10)
[2019-04-16] MEDS ORDERED: piperacillin/tazo 3.375gm/50ml 50 ML IV ONE (23:10)
[2019-04-16] MEDS ORDERED: normal saline 1000ML IV soln IV ONE (23:10)
[2019-04-16 23:30] LABS: BASOPHILS % (AUTO) 0.4 % (0-1); EOSINOPHILS % (AUTO) 0.2 % (0-6); HEMATOCRIT 38.7 % (42.0-52.0); HEMOGLOBIN 13.2 g/dl (14.0-17.9); LYMPHOCYTES # (AUTO) 0.4 X10'3 (1.1-4.8); MEAN CORPUSCULAR HEMOGLOBIN 29.4 PG (27.0-31.0); MEAN CORPUSCULAR VOLUME 86.4 FL (78-98); MONOCYTES # (AUTO) 0.7 X10'3 (0-0.9); MONOCYTES % (AUTO) 6.6 % (2-12); NEUTROPHILS # (AUTO) 9.8 X10'3 (1.8-7.7); NEUTROPHILS % (AUTO) 88.8 % (42-75); PLATELET COUNT 212 X10'3 (140-440); RED BLOOD COUNT 4.48 X10'6 (4.70-6.10); RED CELL DISTRIBUTION WIDTH 15.1 % (11.5-14.5)
[2019-04-16 23:43] LABS: PARTIAL THROMBOPLASTIN TIME 28 SECONDS (22-32)
[2019-04-16 23:46] LABS: ALANINE AMINOTRANSFERASE 27 U/L (12-78); ALBUMIN 3.1 G/DL (3.4-5.0); ALBUMIN/GLOBULIN RATIO 0.6 (1.1-1.5); ALKALINE PHOSPHATASE 79 IU/L (46-116); ANION GAP 9 (8-16); ASPARTATE AMINO TRANSFERASE 16 U/L (10-37); BILIRUBIN,TOTAL 0.5 MG/DL (0.1-1.0); BLOOD UREA NITROGEN 11 MG/DL (7-18); BUN/CREATININE RATIO 11.7 (5.4-32.0); CALCIUM 9.3 MG/DL (8.5-10.1); CHLORIDE 100 MMOL/L (99-107); CREATININE 0.94 MG/DL (0.60-1.10); GLUCOSE 108 MG/DL (70-104); MAGNESIUM 1.8 MG/DL (1.5-2.4); POTASSIUM 3.9 MMOL/L (3.5-5.1); SODIUM 136 MMOL/L (135-145); TOTAL CARBON DIOXIDE 27.4 MMOL/L (24-32); TOTAL PROTEIN 7.9 G/DL (6.4-8.2); eGFR 85 ML/MIN
[2019-04-16] MEDS ORDERED: acetaminophen 325mg tablet PO ONE (23:55)
[2019-04-17 02:28] LABS: CLARITY,URINE CLEAR (Clear); COLOR,URINE YELLOW (Yellow); GLUCOSE, URINE NEGATIVE (Neg); KETONES,URINE NEGATIVE (Neg); LEUKOCYTE ESTERASE ,URINE NEGATIVE (Neg); NITRITES, URINE NEGATIVE (Neg); OCCULT BLOOD,URINE NEGATIVE (Neg); PH,URINE 5.5 (4.8-8.0); PROTEIN,URINE NEGATIVE (Neg); UROBILINOGEN,URINE 0.2 E.U/dL (0.2-1.0)
[2019-04-17 02:29] LABS: UA COLLECTION TYPE OTHER
[2019-04-17] MEDS ORDERED: acetaminophen 325mg tablet PO PRN (02:55)
[2019-04-17] MEDS ORDERED: magnesium hydroxide 30ml (MOM) UD suspension PO PRN (02:55)
[2019-04-17] MEDS ORDERED: ondansetron/PF 4mg/2ml inj IV PRN (02:55)
[2019-04-17] MEDS ORDERED: mag hydrox/Alum hydrox/simeth 30ml oral suspension PO PRN (02:55)
[2019-04-17] MEDS ORDERED: oxyCODONE/APAP 10/325mg tablet PO PRN (03:00)
[2019-04-17] MEDS ORDERED: OXYC-511 PO (03:02)
--- NOTE | 2019-04-17 03:16 | NUR ---
PT REPORTS HUNGER. REG DIET ORDERED. PT GIVEN JUICE, SNACKS, AND PITCHER OF WATER.
[2019-04-17] MEDS: normal saline 1000ml 1,000 ML IV SCH ×3 (03:25→22:53)
--- NOTE | 2019-04-17 05:20 | NUR ---
report called by WILLIE Haynes. awaiting pt arrival to unit
--- NOTE | 2019-04-17 05:30 | NUR ---
pt arrived to unit. transferred self to to bed. in no apparent distress, BLL, 2x rails up, call light in reach
--- NOTE | 2019-04-17 06:04 | NUR ---
report given to WILLIE Abreu
[2019-04-17 07:00] VITALS: BP 95/58
--- NOTE | 2019-04-17 07:05 | NUR ---
Patient in room [facility]. I have received report from Nahun TAPIA and had the opportunity to ask questions and assume patient care.
[2019-04-17] MEDS: albuterol 2.5 MG/3 ML nebule NEB SCH ×3 (08:03→20:21)
[2019-04-17] MEDS: piperacillin/tazo 3.375gm/50ml 50 ML IV SCH ×2 (08:14→19:43)
[2019-04-17] MEDS: pantoprazole 40mg Tablet.DR PO SCH (08:14)
[2019-04-17] MEDS: heparin, porcine 5000 units/ml vial SQ SCH ×2 (08:14→19:44)
[2019-04-17] MEDS: guaiFENesin 200 MG/10 ML oral syrup UD cup PO SCH ×4 (08:15→21:58)
[2019-04-17] MEDS: VANCOmycin 1250MG/NS 250ml Bag 250 ML IV SCH ×2 (10:57→17:06)
[2019-04-17] MEDS: HYDROcodone/acetaminophen 10/325mg tab PO PRN ×2 (17:06→21:58)
[2019-04-17 18:00] VITALS: BP 115/60
--- NOTE | 2019-04-17 18:00 | NUR ---
Patient in room [facility]. I have received report from WILLIE Abreu and had the opportunity to ask questions and assume patient care.
[2019-04-17] MEDS: lactobacillus rhamnosus 10,000 MMU CELLS/CAPSULE PO SCH (19:43)
[2019-04-17] MEDS ORDERED: VANCOMYCIN LEVEL IV ONE (22:30)
[2019-04-17] MEDS ORDERED: VANCOMYCIN LEVEL IV NR (22:30)
--- NOTE | 2019-04-17 22:54 | NUR ---
pharmacy notified of vancomycin trough level 20.8. Told to give next dose and future dose will be adjusted
[2019-04-18] VITALS: BP 104/46
[2019-04-18] MEDS: VANCOmycin 1250MG/NS 250ml Bag 250 ML IV SCH (00:31)
[2019-04-18] MEDS ORDERED: VANCOMYCIN LEVEL IV ONE (06:30)
--- NOTE | 2019-04-18 06:41 | NUR ---
Problems reprioritized. Patient report given, questions answered & plan of care reviewed with WILLIE Toney.
[2019-04-18] MEDS: albuterol 2.5 MG/3 ML nebule NEB SCH (07:04)
[2019-04-18 07:51] LABS: BASOPHILS % (AUTO) 0.8 % (0-1); EOSINOPHILS # (AUTO) 0.1 X10'3 (0-0.9); EOSINOPHILS % (AUTO) 3.1 % (0-6); HEMATOCRIT 30.7 % (42.0-52.0); HEMOGLOBIN 10.4 g/dl (14.0-17.9); LYMPHOCYTES # (AUTO) 0.7 X10'3 (1.1-4.8); LYMPHOCYTES % (AUTO) 18.3 % (21-51); MEAN CORPUSCULAR HEMOGLOBIN 29.7 PG (27.0-31.0); MEAN CORPUSCULAR HGB CONC 34.1 g/dL (33.0-36.5); MEAN CORPUSCULAR VOLUME 87.3 FL (78-98); MEAN PLATELET VOLUME 8.5 FL (7.4-10.4); MONOCYTES # (AUTO) 0.4 X10'3 (0-0.9); NEUTROPHILS # (AUTO) 2.5 X10'3 (1.8-7.7); NEUTROPHILS % (AUTO) 66.8 % (42-75); PLATELET COUNT 155 X10'3 (140-440); RED BLOOD COUNT 3.51 X10'6 (4.70-6.10); RED CELL DISTRIBUTION WIDTH 15.5 % (11.5-14.5); WHITE BLOOD COUNT 3.7 X10'3 (4.5-11.0)
[2019-04-18 07:58] LABS: ALANINE AMINOTRANSFERASE 25 U/L (12-78); ALBUMIN 2.2 G/DL (3.4-5.0); ALBUMIN/GLOBULIN RATIO 0.6 (1.1-1.5); ALKALINE PHOSPHATASE 54 IU/L (46-116); ANION GAP 7 (8-16); ASPARTATE AMINO TRANSFERASE 21 U/L (10-37); BILIRUBIN,TOTAL 0.3 MG/DL (0.1-1.0); BLOOD UREA NITROGEN 10 MG/DL (7-18); CALCIUM 8.2 MG/DL (8.5-10.1); CHLORIDE 109 MMOL/L (99-107); CREATININE 0.83 MG/DL (0.60-1.10); GLUCOSE 93 MG/DL (70-104); POTASSIUM 3.6 MMOL/L (3.5-5.1); SODIUM 144 MMOL/L (135-145); TOTAL CARBON DIOXIDE 28.2 MMOL/L (24-32); TOTAL PROTEIN 6.1 G/DL (6.4-8.2); eGFR > 90 ML/MIN
[2019-04-18 08:03] LABS: VANCOMYCIN,TROUGH 21.9 UG/ML (6.0-14.0)
[2019-04-18 08:30] VITALS: BP 97/56
[2019-04-18] MEDS: normal saline 1000ml 1,000 ML IV SCH (08:51)
[2019-04-18] MEDS: guaiFENesin 200 MG/10 ML oral syrup UD cup PO SCH (08:54)
[2019-04-18] MEDS: piperacillin/tazo 3.375gm/50ml 50 ML IV SCH ×2 (08:54)
[2019-04-18] MEDS: lactobacillus rhamnosus 10,000 MMU CELLS/CAPSULE PO SCH (08:55)
[2019-04-18] MEDS: pantoprazole 40mg Tablet.DR PO SCH (08:55)
[2019-04-18] MEDS: heparin, porcine 5000 units/ml vial SQ SCH (08:57)
[2019-04-18] MEDS ORDERED: FLU VACC QS2019-20 36MOS UP/PF 60 MCG/0.5 ML SYRINGE IMVAC ONE (10:00)
[2019-04-18] MEDS ORDERED: LEVO750T21 PO (10:39)
[2019-04-18] MEDS ORDERED: vancomycin/NS 1 GM ADD-VANTAGE 250 ML IV SCH (11:00)
[2019-04-18 11:30] VITALS: BP 97/58
--- NOTE | 2019-04-18 11:45 | NUR ---
Pt discharged home with s/o. Will nut picker perscriptions at [facility] before they close at 1300. IV taken out, all belongings taken from room. PT appropriate and happy to be discharged. Pt refused flu vaccine says he has a appt this week and will get it then. No tele.
[2019-04-19] MEDS ORDERED: VANCOMYCIN LEVEL IV ONE (10:30)
== END 2019-04-18 11:45 | disposition home or self-care (01) | DRG 139 ==
LOC: ER 22:55 → ED HOLD 04-17 03:12 → SUR 3N 04-17 05:20
PROVIDERS: ADMIT Internal Medicine; ATTEND Family Medicine
DX: J18.1 Lobar pneumonia, unspecified organism (principal); K56.7 Ileus, unspecified; D64.9 Anemia, unspecified; F12.90 Cannabis use, unspecified, uncomplicated; G89.29 Other chronic pain; K21.9 Gastro-esophageal reflux disease without esophagitis; Z87.891 Personal history of nicotine dependence; Z28.21 Immunization not carried out because of patient refusal
CPT/HCPCS: 36415; 71045; 74176; 80053; 80202; 81003; 83605; 83735; 84145; 85025; 85610; 85730; 87040; 87081; 93005; 94640; 94668; 94760; 96374; 99285; G0378; J1644; J2543; J3370; J7030

== ENCOUNTER 2020-10-07 00:28 | Emergency (ER) | payer MEDICAID ==
[~2020-10-07] VITALS: Ht 193 cm; Wt 104.0 kg
[~2020-10-07 00:28] MED LIST changes: +OXYC1TAB17 PO
[2020-10-07 01:11] LABS: BASOPHILS % (AUTO) 0.3 % (0-1); EOSINOPHILS % (AUTO) 0.3 % (0-6); HEMATOCRIT 45.6 % (42.0-52.0); HEMOGLOBIN 15.4 g/dl (14.0-17.9); LYMPHOCYTES # (AUTO) 0.7 X10'3 (1.1-4.8); LYMPHOCYTES % (AUTO) 9.3 % (21-51); MEAN CORPUSCULAR HEMOGLOBIN 29.7 PG (27.0-31.0); MEAN CORPUSCULAR HGB CONC 33.7 g/dL (33.0-36.5); MEAN CORPUSCULAR VOLUME 88.2 FL (78-98); MEAN PLATELET VOLUME 9.3 FL (7.4-10.4); MONOCYTES # (AUTO) 0.5 X10'3 (0-0.9); MONOCYTES % (AUTO) 6.7 % (2-12); NEUTROPHILS % (AUTO) 83.4 % (42-75); PLATELET COUNT 202 X10'3 (140-440); RED BLOOD COUNT 5.17 X10'6 (4.70-6.10); WHITE BLOOD COUNT 7.2 X10'3 (4.5-11.0)
[2020-10-07 01:16] LABS: ALANINE AMINOTRANSFERASE 19 U/L (12-78); ALBUMIN 4.2 G/DL (3.4-5.0); ALKALINE PHOSPHATASE 96 IU/L (46-116); ANION GAP 9 (8-16); ASPARTATE AMINO TRANSFERASE 17 U/L (10-37); BILIRUBIN,TOTAL 0.7 MG/DL (0.1-1.0); BLOOD UREA NITROGEN 12 MG/DL (7-18); BUN/CREATININE RATIO 12.2 (5.4-32.0); CHLORIDE 100 MMOL/L (99-107); CREATININE 0.98 MG/DL (0.60-1.10); GLUCOSE 109 MG/DL (70-104); LIPASE 69 U/L (73-393); SODIUM 141 MMOL/L (135-145); TOTAL PROTEIN 8.5 G/DL (6.4-8.2); eGFR 80 ML/MIN
[2020-10-07] MEDS ORDERED: normal saline 1000ML IV soln IVB ONE (01:45)
[2020-10-07] MEDS ORDERED: ondansetron/PF 4mg/2ml inj IV ONE (01:45)
[2020-10-07] MEDS ORDERED: morphine 4 MG/ML inj SYRINge IV PRN (01:45)
--- NOTE | 2020-10-07 02:05 | NUR ---
VERY DIFFICULT IV STICK. US WAS USED BUT THE ONE VEIN HE HAS IN HIS RUE THE VEIN IS UNDER THE ARTERY AND IT WILL NOT REPOSITION. THERE IS ALSO A HUGE NERVE BUNDLE.
--- NOTE | 2020-10-07 02:24 | NUR ---
THE PAIN IS SUBSIDING. HE SAID HE THINKS HE CAN ACTUALLY GET SOME REST, LIGHTS DIMMED. HIS LEFT TO GO HAVE A SMOKE.
[2020-10-07] MEDS ORDERED: famotidine/PF 10 mg/ml inj IV ONE (02:25)
[2020-10-07] MEDS ORDERED: pantoprazole 40 MG vial IV ONE (02:25)
[2020-10-07] MEDS ORDERED: sucralfate 1gm/10ml UD suspension PO SCH (02:25)
[2020-10-07] MEDS ORDERED: mag hydrox/Alum hydrox/simeth 30ml oral suspension PO ONE (02:25)
[2020-10-07] MEDS ORDERED: LIDOcaine Viscous 15ml cup MM PRN (02:25)
[2020-10-07] MEDS ORDERED: sucralfate 1gm/10ml UD suspension PO ONE (02:25)
[2020-10-07 02:41] LABS: H PYLORI ANTIBODY POSITIVE (Neg)
[2020-10-07] MEDS ORDERED: SUCR1TAB34 PO (02:55)
[2020-10-07] MEDS ORDERED: ONDA4TAB6 PO (02:55)
[2020-10-07] MEDS ORDERED: CLAR500T22 PO (02:55)
[2020-10-07] MEDS ORDERED: OMEP40CA13 PO (02:55)
[2020-10-07] MEDS ORDERED: METR500T PO (02:55)
[2020-10-07] MEDS ORDERED: FAMO20TA44 PO (02:55)
[2020-10-07 03:33] VITALS: BP 145/82
== END 2020-10-07 03:34 | disposition home or self-care (01) ==
LOC: ER 00:29
DX: K29.00 Acute gastritis without bleeding (principal); B96.81 Helicobacter pylori [H. pylori] as the cause of diseases classified elsewhere; K21.9 Gastro-esophageal reflux disease without esophagitis; G89.29 Other chronic pain; F12.90 Cannabis use, unspecified, uncomplicated; F15.90 Other stimulant use, unspecified, uncomplicated; Z56.0 Unemployment, unspecified; Z98.890 Other specified postprocedural states; Z79.899 Other long term (current) drug therapy
CPT/HCPCS: 36415; 74176; 80053; 83605; 83690; 85025; 86677; 96361; 96374; 96375; 99284; C9113; J2270; J2405; J3490; J7030

== ENCOUNTER 2021-06-27 14:49 | Emergency (ER) | payer MEDICAID ==
[~2021-06-27] VITALS: Ht 193 cm; Wt 109.1 kg
[~2021-06-27 14:49] MED LIST changes: +FAMO20TA44 PO; +ONDA4TAB6 PO; -OXYC1TAB17 PO; +SUCR1TAB34 PO
[2021-06-27 15:10] VITALS: BP 118/71
[2021-06-27] MEDS ORDERED: acetaminophen 325mg tablet PO STA (15:14)
[2021-06-27 15:51] LABS: BASOPHILS % (AUTO) 0.5 % (0-1); EOSINOPHILS % (AUTO) 0.2 % (0-6); HEMATOCRIT 40.1 % (42.0-52.0); HEMOGLOBIN 13.9 g/dl (14.0-17.9); LYMPHOCYTES # (AUTO) 0.6 X10'3 (1.1-4.8); LYMPHOCYTES % (AUTO) 7.3 % (21-51); MEAN CORPUSCULAR HEMOGLOBIN 30.6 PG (27.0-31.0); MEAN CORPUSCULAR HGB CONC 34.6 g/dL (33.0-36.5); MEAN CORPUSCULAR VOLUME 88.4 FL (78-98); MEAN PLATELET VOLUME 8.5 FL (7.4-10.4); MONOCYTES # (AUTO) 0.8 X10'3 (0-0.9); MONOCYTES % (AUTO) 8.8 % (2-12); NEUTROPHILS # (AUTO) 7.2 X10'3 (1.8-7.7); NEUTROPHILS % (AUTO) 83.2 % (42-75); PLATELET COUNT 176 X10'3 (140-440); RED BLOOD COUNT 4.53 X10'6 (4.70-6.10); RED CELL DISTRIBUTION WIDTH 14.4 % (11.5-14.5); WHITE BLOOD COUNT 8.7 X10'3 (4.5-11.0)
[2021-06-27 16:14] LABS: ALANINE AMINOTRANSFERASE 25 U/L (12-78); ALBUMIN 3.7 G/DL (3.4-5.0); ALBUMIN/GLOBULIN RATIO 0.8 (1.1-1.5); ALKALINE PHOSPHATASE 81 IU/L (46-116); ANION GAP 11 (8-16); ASPARTATE AMINO TRANSFERASE 31 U/L (10-37); BILIRUBIN,TOTAL 0.8 MG/DL (0.1-1.0); BLOOD UREA NITROGEN 11 MG/DL (7-18); BUN/CREATININE RATIO 10.4 (5.4-32.0); CALCIUM 8.8 MG/DL (8.5-10.1); CHLORIDE 94 MMOL/L (99-107); CREATININE 1.06 MG/DL (0.60-1.10); GLUCOSE 115 MG/DL (70-104); SODIUM 132 MMOL/L (135-145); TOTAL CARBON DIOXIDE 27.2 MMOL/L (24-32); TOTAL PROTEIN 8.6 G/DL (6.4-8.2); eGFR 73 ML/MIN
[2021-06-27] MEDS ORDERED: dexamethasone sod phosphate 10mg/ml inj IM STA (16:38)
[2021-06-27] MEDS ORDERED: amox tr/potassium clavulanate 875/125mg TAB PO ONE (16:40)
[2021-06-27] MEDS ORDERED: PRED20TA PO (16:41)
[2021-06-27] MEDS ORDERED: AMOX-117 PO (16:41)
== END 2021-06-27 17:36 | disposition home or self-care (01) ==
LOC: ER 14:50
DX: H66.92 Otitis media, unspecified, left ear (principal); Z20.822 Contact with and (suspected) exposure to COVID-19; J06.9 Acute upper respiratory infection, unspecified; K21.9 Gastro-esophageal reflux disease without esophagitis; G89.29 Other chronic pain; F12.90 Cannabis use, unspecified, uncomplicated; F15.90 Other stimulant use, unspecified, uncomplicated; Z87.11 Personal history of peptic ulcer disease; Z72.89 Other problems related to lifestyle; Z56.0 Unemployment, unspecified; Z98.890 Other specified postprocedural states; Z79.2 Long term (current) use of antibiotics; Z79.899 Other long term (current) drug therapy
CPT/HCPCS: 36415; 71045; 80053; 83605; 84145; 85025; 87040; 87502; 87503; 87635; 93005; 99285; C9803; J1100

== ENCOUNTER 2023-09-02 12:30 | Emergency (ER) | payer MEDICAID ==
[~2023-09-02] VITALS: Ht 177.8 cm; Wt 113.6 kg
[~2023-09-02 12:30] MED LIST changes: +ESCI-8 PO; +HYDR-3686 PO
[2023-09-02] MEDS: ondansetron/PF 4mg/2ml inj IV ONE (12:55)
[2023-09-02] MEDS: normal saline 1000ML IV soln IVB ONE (12:55)
[2023-09-02 13:11] LABS: BASOPHILS % (AUTO) 0.2 % (0-1); EOSINOPHILS % (AUTO) 0.2 % (0-6); HEMATOCRIT 38.3 % (42.0-52.0); LYMPHOCYTES # (AUTO) 0.3 X10'3 (1.1-4.8); LYMPHOCYTES % (AUTO) 5.8 % (21-51); MEAN CORPUSCULAR HEMOGLOBIN 29.8 PG (27.0-31.0); MEAN CORPUSCULAR HGB CONC 33.9 g/dL (33.0-36.5); MEAN CORPUSCULAR VOLUME 87.8 FL (78-98); MEAN PLATELET VOLUME 8.3 FL (7.4-10.4); MONOCYTES # (AUTO) 0.4 X10'3 (0-0.9); MONOCYTES % (AUTO) 7.3 % (2-12); NEUTROPHILS # (AUTO) 4.8 X10'3 (1.8-7.7); NEUTROPHILS % (AUTO) 86.5 % (42-75); PLATELET COUNT 186 X10'3 (140-440); RED BLOOD COUNT 4.36 X10'6 (4.70-6.10); RED CELL DISTRIBUTION WIDTH 15.4 % (11.5-14.5); WHITE BLOOD COUNT 5.6 X10'3 (4.5-11.0)
[2023-09-02 13:17] LABS: ALBUMIN 3.4 G/DL (3.4-5.0); ANION GAP 12 (8-16); BLOOD UREA NITROGEN 13 MG/DL (7-18); BUN/CREATININE RATIO 13.3 (10.0-20.0); CALCIUM 8.3 MG/DL (8.5-10.1); CHLORIDE 99 MMOL/L (99-107); CREATININE 0.98 MG/DL (0.60-1.10); GLUCOSE 105 MG/DL (70-104); POTASSIUM 3.8 MMOL/L (3.5-5.1); SODIUM 138 MMOL/L (135-145); eCRCL 88 ML/MIN; eGFR 79 ML/MIN
[2023-09-02] MEDS ORDERED: BUDE180A INH (15:37)
[2023-09-02] MEDS ORDERED: PRED20TA PO (15:37)
[2023-09-02] MEDS ORDERED: LEVO750T68 PO (15:37)
[2023-09-02] MEDS ORDERED: ALBU6.7H14 INH (15:37)
[2023-09-02 16:37] VITALS: BP 112/66; PULSE 84; RESP 15; TEMP 98; O2SAT 99
== END 2023-09-02 16:40 | disposition home or self-care (01) ==
LOC: ER 12:30
DX: J18.9 Pneumonia, unspecified organism (principal); R11.0 Nausea; K21.9 Gastro-esophageal reflux disease without esophagitis; F15.90 Other stimulant use, unspecified, uncomplicated; F12.90 Cannabis use, unspecified, uncomplicated; Z79.899 Other long term (current) drug therapy
CPT/HCPCS: 36415; 71045; 74176; 80048; 85025; 87502; 87503; 96361; 96374; 99285; J2405; J7030

== ENCOUNTER 2025-04-01 04:27 | Inpatient (IN) | payer MEDICAID ==
[~2025-04-01] VITALS: Ht 193 cm; Wt 120.0 kg
[~2025-04-01 04:27] MED LIST changes: +ALBU6.7H14 INH; +BUDE180A5 INH
--- NOTE | 2025-04-01 05:02 | Physician Documentation ---
History of Present Illness ~ Chief Complaint: Leg Pain Stated Complaint: CELLULITIS M ALS Time Seen by MD: 05:01 Primary Medical Doctor: CHARLY BROWN HPI Patient presents to the emergency room with five day history of right lower extremity swelling pain and erythema. He states he may have burned it on a water heater which led to this. No prior instances. Subjective fevers Tetanus witin 5 years: Yes Medication Reconciliation Allergies: Coded Allergies: No Known Allergies (Unverified , 02/23/19) Scheduled Omeprazole (Prilosec), 1 CAP PO DAILY, (Reported) Discontinued Medications Albuterol Sulfate (Proventil Hfa), 2 PUFFS INH Q4H Discontinued Reason: patient no longer taking Budesonide (Pulmicort Flexhaler), 2 PUFFS INH Q12H Discontinued Reason: patient no longer taking Escitalopram Oxalate (Escitalopram Oxalate), 1 TAB PO DAILY Discontinued Reason: patient no longer taking Famotidine (Pepcid AC), 1 TAB PO BID Discontinued Reason: patient no longer taking Hydroxyzine Hcl* (Atarax*), 50 MG PO Q6H PRN for anxiety Discontinued Reason: patient no longer taking Ondansetron Hcl (Zofran), 1 TAB PO Q6H PRN for nausea/vomiting Discontinued Reason: patient no longer taking Pantoprazole Sodium (PROTONIX tablet), 1 TAB PO DAILY, (Reported) Discontinued Reason: patient no longer taking Sucralfate (Carafate), 1 TAB PO Q6H Discontinued Reason: patient no longer taking Past Medical History Past Medical History: *GI/HEPATOBILIARY*, GERD, Peptic Ulcer Disease, Hernia, Chronic Pain Past Surgical History: abdominal surgery, orthopedic surgeries Other Past Surgical History: Hernia repair Alcohol Use: Occasionally Drug Use: marijuana, methamphetamine Lives with: Family Lives In: Home Occupation: unemployed Review of Systems All Other Systems at this time: Reviewed and Negative ROS All review of systems negative except as per HPI Constitutional: Reports: malaise, weakness Eyes: Reports: no symptoms reported ENT: Reports: no symptoms reported Respiratory: Reports: no symptoms reported Cardiovascular: Reports: no symptoms reported Gastrointestinal: Reports: no symptoms reported Genitourinary: Reports: no symptoms reported Male Genitalia: Reports: no symptoms reported Neurological: Reports: no symptoms reported Musculoskeletal: Reports: no symptoms reported Integumentary Cellulitis to RLE Hematologic/Lymphatic: Reports: no symptoms reported Endocrine: Reports: no symptoms reported Psychiatric: Reports: no symptoms reported Physical Exam Vital Signs: RN Vital Signs have been reviewed: Yes, Source: Oral, Heart Rate: 87, Respiratory Rate: 19, BP: 116/60, Pulse Oximetry: 93, Weight: 120.000 Physical Exam General: Patient is awake, alert, oriented x4 in no acute distress Head: Normocephalic and atraumatic. Eyes: Conjunctival normal. EOMI. PERRL. ENT: Mucous membranes moist. Neck: Supple, trachea is midline. Chest: Clear to auscultation bilaterally without rales, rhonchi, or wheezes. There is no accessory muscle use or retractions. Cardiac: RRR without murmurs, gallops, or rubs. Abd: Soft, nondistended, nontender, with normoactive bowel sounds. No guarding, rebound, or rigidity. Extremities: Diffuse cellulitis from the knee down on patient's right. Significant swelling pain and warmness to touch. General Appearance: alert, WD/WN, no apparent distress Head: normal inspection EENT: PERRL/EOMI Neck: full range of motion Respiratory: no respiratory distress Chest: no accessory muscle use Cardiovascular: normal peripheral pulses Gastrointestinal: normal palpation Back: normal inspection Pelvis: normal Hips: normal inspection Legs Cellulitis to RLE Skin: red Neurologic: oriented x4 Progress Results/Orders Results/Orders Orders - DON HICKS MD Culture Blood (04/01/25 05:04) Chest,Single View (04/01/25 05:04) Cult Urine + [place] [address] (04/01/25 07:40) Completed Orders - DON HICKS MD Electrocardiogram (04/01/25 05:04) Cbc/Diff (04/01/25 05:04) MG (04/01/25 05:04) Chest,Single View (04/01/25 05:04) Procalcitonin (04/01/25 05:04) BMP (04/01/25 05:04) Lacticsepsis (04/01/25 05:04) Normal Saline 1000ml (0.9% Sodium Chlori (04/01/25 05:05) Vancomycin Inj (Vancomycin Inj) (04/01/25 05:05) Vancomycin/Ns 1 Gm Add-[place] (Vancomyc (04/01/25 05:15) Ua W/Microscopic, Cult If Ind (04/01/25 06:30) Hgb A1c (04/01/25 06:19) PBNP (04/01/25 06:19) PHOS (04/01/25 06:19) Vital Signs 04/01/25 04/01/25 04/01/25 04/01/25 04:30 04:35 06:21 06:24 Pulse 78 87 81 Resp 16 19 15 18 B/P (MAP) 116/60 (78) 94/51 (65) Pulse Ox 93 93 97 O2 Flow Rate 0 Laboratory Tests Test 04/01/25 06:19 04/01/25 06:30 White Blood Count 7.3 Red Blood Count 3.09 L Hemoglobin 9.4 L Hematocrit 26.8 L Mean Corpuscular Volume 86.8 Mean Corpuscular Hemoglobin 30.3 Mean Corpuscular Hemoglobin Concent 34.9 Red Cell Distribution Width 15.5 H Platelet Count 143 Mean Platelet Volume 9.0 Neutrophils (%) (Auto) 88.7 H Lymphocytes (%) (Auto) 3.7 L Monocytes (%) (Auto) 6.5 Eosinophils (%) (Auto) 1.0 Basophils (%) (Auto) 0.1 Neutrophils # (Auto) 6.5 Lymphocytes # (Auto) 0.3 L Monocytes # (Auto) 0.5 Eosinophils # (Auto) 0.1 Basophils # (Auto) 0.0 CBC Comment Prothrombin Time 11.0 INR International Normalized Ratio 1.1 Activated Partial Thromboplast Time 33 H Coagulation Comments Sodium Level 133 L Potassium Level 2.9 *L Chloride Level 98 L Carbon Dioxide Level 26.3 Anion Gap 9 Blood Urea Nitrogen 39 H Creatinine 2.06 H Estimated GFR/1.73 m2 34 BUN/Creatinine Ratio 18.9 Glucose Level 108 H Hemoglobin A1c 5.4 Lactic Acid Level 1.2 Calcium Level 8.2 L Phosphorus Level 1.8 L Magnesium Level 2.5 H Pro-B-Type Natriuretic Peptide 931 H Albumin 2.4 L Procalcitonin 5.48 H Chemistry Comments Urine Specimen Description Urinal Urine Color Yellow Urine Clarity Slightly cloudy Urine pH 5.5 Urine Specific [place] 1.020 Urine Protein 30 H Urine Glucose (UA) Negative Urine Ketones Negative Urine Occult Blood Large H Urine Nitrite Negative Urine Bilirubin Negative Urine Urobilinogen 1.0 Urine Leukocyte Esterase Negative Urine RBC 20-50 Urine WBC 5-10 H Urine Squamous Epithelial Cells Few Urine Bacteria Few Urine Coarse Granular Casts 10-30 Urine Mucus None seen Urine Culture Indicated Indicated Volume Urine Centrifuged 10 ml Urine Comment Microbiology Date/Time Source Procedure Growth Status 04/01/25 07:40 Urine Urinal (Er Only) Urine Culture - Preliminary Culture received. Resulted Medical Decision Making Toe Diff Dx:Considerations: Include: Cellulitis Additional Comment Mr. Roman is a 54 y/o male who presents to the ED with c/o cellulitis to the RLE. While here in the ED, he remained hemodynamically normal with ABC's intact and in NAD. He is afebrile and nontoxic. He is noted to have significant cellulitis to his RLE. I reviewed his labs and he is noted to have hypokalemia with a serum K of 2.9 as well as a new LEATHA. Creatinine in Aug 2023 was co mpletely normal. IV fluid therapy initiated. He was started on IV antibiotics and will be admitted for ongoing management. Departure Disposition: ADMITTED INPATIENT Admitted to Inpatient Unit: yes, to hospitalist Admission Level of Care: Med/Surg with Tele Impression: Primary Impression: Cellulitis Additional Impressions: Hypokalemia LEATHA (acute kidney injury) Condition: Stable Discharge Instructions: Cellulitis, Adult Referrals: NO PRIMARY CARE PROVIDER (PCP) Education Educated: Patient Educated regarding: diagnosis Signature Scribe Signature: N/A Attestation: N/A DON HICKS MD Apr 01, 2025 05:02 GUS GILL MD Apr 01, 2025 07:25
[2025-04-01] MEDS ORDERED: vancomycin inj 1,000 MG in normal saline 250ml IV soln 250 ML IV ONE (05:05)
--- NOTE | 2025-04-01 05:18 | ELECTROCARDIOGRAPH REPORT ---
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 Harley Patel Measurements Intervals [place] Rate: 83 P: 59 CA: 166 QRS: 1 QRSD: 96 T: 50 QT: 369 QTc: 434 Interpretive Statements Sinus rhythm Abnormal R-wave progression, early transition Electronically Signed On 04-08-2025 21:51:[address] Harley Patel Please click the below link to view image of tracing.
[2025-04-01] MEDS: normal saline 1000ml 1,000 ML IV ONE ×2 (05:51→07:11)
--- NOTE | 2025-04-01 06:11 | RADIOLOGY REPORT ---
CHEST RADIOGRAPH Indication: SEPSIS Technique: Single frontal view of the chest was obtained COMPARISON: DI CHEST,SINGLE VIEW on DOS: 09/02/23, CHEST,SINGLE VIEW on DOS: 06/27/21, CHEST,SINGLE VIEW on DOS: 04/16/19 FINDINGS: Lines and Tubes: None Lungs: Clear Pleura: No effusion. No pneumothorax. Cardiomediastinal contours: Unremarkable Bones: Unremarkable IMPRESSION: 1. No acute disease.
[2025-04-01] MEDS: vancomycin/NS 1 GM ADD-VANTAGE 250 ML IV ONE (06:40)
[2025-04-01 06:54] LABS: CREATININE 2.06 MG/DL (0.60-1.10); TOTAL CARBON DIOXIDE 26.3 MMOL/L (24-32); eCRCL 49 ML/MIN; eGFR 34 ML/MIN
[2025-04-01 06:55] LABS: LEUKOCYTE ESTERASE ,URINE NEGATIVE (Neg); NITRITES, URINE NEGATIVE (Neg); OCCULT BLOOD,URINE LARGE (Neg)
[2025-04-01 06:58] LABS: MEAN PLATELET VOLUME 9.0 FL (7.4-10.4); RED CELL DISTRIBUTION WIDTH 15.5 % (11.5-14.5)
[2025-04-01] MEDS: POTASSIUM BICARB 20meq eff tab 20 MEQ TABLET.EFF PO ONE (07:21)
[2025-04-01 07:28] LABS: UA COLLECTION TYPE URINAL
[2025-04-01 07:38] LABS: MUCUS STRANDS NONE SEEN /LPF (Neg); SQUAMOUS EPITHELIAL CELL,UR FEW /LPF (FEW)
[2025-04-01] MEDS ORDERED: bisacodyl 10mg suppository rectal RC PRN (08:10)
[2025-04-01] MEDS ORDERED: magnesium Cl slow-release 64mg tablet PO PRN (08:10)
[2025-04-01] MEDS ORDERED: potassium Cl 20 mEq SR tablet PO PRN (08:10)
[2025-04-01] MEDS ORDERED: acetaminophen 650mg rectal suppository RC PRN (08:10)
[2025-04-01] MEDS ORDERED: ondansetron 4mg rapidly disintigrating tab PO PRN (08:10)
[2025-04-01] MEDS ORDERED: HYDROcodone/acetaminophen 5mg/325mg tablet PO PRN (08:10)
[2025-04-01] MEDS ORDERED: potassium Cl 40MEQ/1/2NS 520ml 520 ML IV PRN (08:10)
[2025-04-01] MEDS ORDERED: magnesium sulf-water 2g/50mL 50 ML IV PRN (08:10)
[2025-04-01] MEDS ORDERED: magnesium sulf-water 4G/100mL 100 ML IV PRN (08:10)
[2025-04-01] MEDS: potassium Cl 20mEq in NS 1,000 ML IV SCH (08:31)
--- NOTE | 2025-04-01 08:47 | VASCULAR REPORT ---
[facility] Vascular Department [facility] [address] [place] [address] [email or web address] [email or web address] CONMESSION VASCUL Name : RICKY CARCAMO Date : 04/01/2025 TODD Accession# : [id number] Birthdate : 1970 Sex : M School Photographer : Verna Pearl RDMS/RVT Age : [address] : GUS GILL, Preliminary Report The above named patient was referred for a NON-INVASIVE LOWER EXTREMITY VENOUS EXAMINATION. The evaluation includes grayscale imaging, color flow Doppler and spectral analysis of the major deep and superficial lower extremity veins. Right Lower Extremity Venous Study for DVT Patient ER InaRSaation's Right calf pain, swelling, redness Vein Imaging (Right) CFV (R): Compressible, Spontaneous, Respirophasic Reflux: ms SFJ (R): Compressible, Spontaneous, Respirophasic Reflux: ms FEM (R): Compressible, Spontaneous, Respirophasic Reflux: ms POP (R): Thrombus Reflux: ms DFV (R): Compressible, Spontaneous, Respirophasic Reflux: ms GSV (R): Compressible, Spontaneous, Respirophasic Reflux: ms Vein Imaging (Left) CFV (L): Compressible, Spontaneous, Respirophasic, Augmentation Reflux: ms Impression: Nonocclusive acute thrombus visualized in Right Pop Vein. Remainder of right lower extremity appears patent. Right calf veins not well visualized due to swelling and patient discomfort with probe pressure. Contralateral Common Femoral Vein shows respirophasic flow and good augmentation. Right groin lymph node measures up to 5.6cm x 1.7cm in transverse.
[2025-04-01 09:13] LABS: PHOSPHORUS 1.8 MG/DL (2.3-4.5); PRO BRAIN NATRIURETIC PEPTIDE 931 PG/ML (0-125)
[2025-04-01] MEDS ORDERED: OMEP40CA21 PO (09:23)
[2025-04-01] MEDS: piperacillin/tazo 4.5gm/100ml 100 ML IV SCH (09:24)
[2025-04-01 09:41] LABS: APTT 33 SECONDS (22-32); INR 1.1 INR
[2025-04-01 09:50] VITALS: BP 101/56; PULSE 80; RESP 18; TEMP 97.4; O2SAT 98
[2025-04-01] MEDS: HEPARIN DRIP DVT/PE -**PHARMACIST TO DOSE IV ONE (10:05)
[2025-04-01] MEDS: MESSAGE TO NURSING IV ONE ×3 (10:45→21:59)
[2025-04-01] MEDS: ringers solution, lacted 1,000 ML IV ONE (10:56)
[2025-04-01] MEDS: heparin 25,000 UNIT/250ml bag 250 ML IV PRN (11:31)
[2025-04-01] MEDS: heparin 10,000 units/1 ML INJ IV ONE (11:33)
[2025-04-01 13:54] VITALS: RESP 18; O2SAT 96
[2025-04-01 13:54] LABS: CREATININE 1.92 MG/DL (0.60-1.10); TOTAL CARBON DIOXIDE 25.6 MMOL/L (24-32); eCRCL 53 ML/MIN; eGFR 36 ML/MIN
[2025-04-01] MEDS: potassium Cl 20 mEq SR tablet PO PRN (14:12)
[2025-04-01] MEDS: HYDROcodone/acetaminophen 10/325mg tab PO PRN (14:15)
[2025-04-01] MEDS ORDERED: heparin, porcine 5000 units/ml vial SQ SCH (16:00)
--- NOTE | 2025-04-01 17:05 | HISTORY AND PHYSICAL ---
History & Physical Providers to Chief complaint, RIGHT LOWER LEG PAIN REDNESS SWELLING ~ History of Present Illness Reason for Admit\Complaint: As above History of Present Illness This is a Mr. Roman is a 54 y/o male coming with history of multiple medical problems including homelessness, peptic ulcer disease, history of alcoholism methamphetamine abuse, sober now, history of depression, history of gout of the left shoulder, anemia hemoglobin 9.5, CHF, diastolic, chronic kidney disease dysuria arthritis, ventral hernia, presented today to emergency department chief complaint left lower leg pain redness associated with swelling; in addition this is the patient who presents to the ED with c/o cellulitis to the RLE. While here in the ED, he remained hemodynamically normal with ABC's intact and in NAD. He is afebrile and nontoxic. He is noted to have significant cellulitis to his RLE. I reviewed his labs and he is noted to have hypokalemia with a serum K of 2.9 as well as a new LEATHA. Creatinine in Aug 2023 was completely normal. IV fluid therapy initiated. He was started on IV antibiotics and will be admitted for ongoing management. Patient was diagnosed with a right lower leg DVT as well, started on IV heparin infusion, and decision was made to admit patient for further evaluation and treatment. No additional complaint or concern. Allergies: Coded Allergies: No Known Allergies (Unverified , 02/23/19) Active prescriptions I reviewed reconciled Home Medications Home Medications Active Reported Prilosec (Omeprazole) 40 Mg Capsule 1 Cap PO DAILY 30 Days Past Medical History Past Medical History As in HPI Past Surgical History Surgical History Comment As in HPI Family History Family History: Family history was reviewed; no changes noted. Past Social History Social History Comment Deny illicit drug abuse tobacco alcohol use , homeless, poor social support Health Maintenance Health Maintenance Noncontributory ROS ROS Constitutional : no fever , no chills, or weakness. No diaphoresis. Allergic/Immunologic, no lymphadenopathy, no hives, no skin eruptions. Eyes, no recent visual changes, no eye pain, no photophobia. Ears, nose, mouth, throat, no sore throat, no nosebleed, no ear pain. Cardiovascular, no palpitations, skipped beats, chest pain, no peripheral edema, Respiratory, no dyspnea, orthopnea, cough, hemoptysis, chest wall pain. Gastrointestinal, no abdominal pain, nausea, vomiting, constipation or diarrhea. : no dysuria, hematuria, pelvic pain, urethral d/c. Endocrine, no polyuria, polydipsia, recent unintentional weight gain or loss. Hematologic/Lymphatic, no petechiae, no enlarged lymph nodes, no bone pain. Integumentary, no rash, no skin lesions, Musculoskeletal, no muscle aches, or pain, no muscle cramps, no recent change in gait, positive for right lower leg pain redness swelling Neurological, no dizziness, no headache, no syncope, no paresthesia. Psychiatric, no delusions, visual hallucinations, or hearing hallucinations. ROS - in rest is as in HPI. Exam Vitals: Vital Signs Date Time Temp Pulse Resp B/P (MAP) Pulse Ox O2 Delivery O2 Flow Rate FiO2 04/01/25 15:15 16 04/01/25 13:54 96 Room Air 0.0 04/01/25 09:57 83 04/01/25 09:50 97.4 101/56 (71) Diagnostic Data Last Recorded Lab Results: 04/01/25 0619 04/01/25 1318 Diagnostic Data: Laboratory Tests Test 04/01/25 06:19 04/01/25 15:29 Prothrombin Time 11.0 SECONDS (9.0-12.0) INR International Normalized Ratio 1.1 INR Activated Partial Thromboplast Time 33 SECONDS (22-32) H APTT (Heparin Protocol) 116 SECONDS (45-75) *H Coagulation Comments Advance Care Planning Advanced Care plannin - 30 Minutes Additional Plan Assessment A right lower leg cellulitis Sepsis secondary to above A right lower leg acute DVT UTI Hypovolemia Acute renal failure Hypokalemia Hyponatremia Hypophosphatemia Homelessness Anemia hemoglobin 9.4 Diastolic CHF in exacerbation Additional comorbidities, history of gout of the left shoulder, depression, history of alcohol and methamphetamine abuse sober now, history of peptic ulcer disease, chronic kidney disease ventral hernia dysuria Plan IV fluids, antibiotics Correct electrolytes 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
[2025-04-01] MEDS ORDERED: sodium phosphate inj. 30 MMOL in dextrose 5%-water 250 ML IV PRN (17:10)
[2025-04-01] MEDS ORDERED: sodium phos 15mmol/D5 255mL 255 ML IV PRN (17:10)
[2025-04-01] MEDS: K and/or MAG REPLACEMENT MC SCH (20:00)
[2025-04-01] MEDS: docusate sod 100mg capsule PO SCH (20:41)
[2025-04-01] MEDS: heparin 10,000 units/1 ML INJ IV PRN (21:41)
[2025-04-01 22:00] VITALS: BP 106/53; PULSE 85; RESP 16; TEMP 99.2; O2SAT 92
[2025-04-01] MEDS: vancomycin/NS 1 GM ADD-VANTAGE 250 ML IV SCH (23:36)
[2025-04-02] VITALS (8 sets, daily range): BP systolic 89–116; BP diastolic 40–73; PULSE 18–100; RESP 13–18; TEMP 98.7–99; O2SAT 90–100
[2025-04-02] MEDS: sodium phos 15mmol/D5 255mL 255 ML IV ONE (01:23)
[2025-04-02 04:17] LABS: MEAN PLATELET VOLUME 8.6 FL (7.4-10.4); RED CELL DISTRIBUTION WIDTH 15.3 % (11.5-14.5)
[2025-04-02 04:36] LABS: CHOL/HDL RATIO 5.0 (0.00-4.99); CREATININE 1.93 MG/DL (0.60-1.10); LDL CHOLESTEROL 33 MG/DL (50-100); TOTAL CARBON DIOXIDE 24.8 MMOL/L (24-32); eCRCL 52 ML/MIN; eGFR 36 ML/MIN
[2025-04-02 05:24] LABS: BANDS% (MANUAL) 2.0 % (0-10); EOSINOPHILS % (MANUAL) 2.0 % (0-6); LYMPHOCYTES % (MANUAL) 9.0 % (21-51); MONOCYTES % (MANUAL) 8.0 % (2-12); NEUTROPHILS % (MANUAL) 79.0 % (42-75); PLATELET ESTIMATE NORMAL
[2025-04-02] MEDS: MESSAGE TO NURSING IV ONE ×2 (07:56→13:58)
[2025-04-02] MEDS ORDERED: HYDROmorphone inj. 0.5 MG/0.5 ML DISP.SYRIN IV PRN (09:00)
[2025-04-02] MEDS: ringers solution, lacted 1,000 ML IV ONE (11:22)
[2025-04-02] MEDS: morphine 4 MG/ML inj SYRINge IV PRN (12:31)
[2025-04-02] MEDS ORDERED: heparin 25,000 UNIT/250ml bag 250 ML IV PRN (12:50)
--- NOTE | 2025-04-02 13:20 | PROGRESS NOTE ---
Daily Progress Note Providers to CC Feels better today, less redness edema and pain of the right lower leg ~ Central Line/PICC still needed: No Colbert-Non Protocol Colbert Indications Met/Not Met: F/C Indications Not Met Antibiotic Timeout Antibiotic Ordered?: Yes MRSA Education MRSA Education Provided to pt: Yes Subjective As above Objective Vital Signs Date Time Temp Pulse Resp B/P (MAP) Pulse Ox O2 Delivery O2 Flow Rate FiO2 04/02/25 12:31 18 04/02/25 10:00 98.7 78 94/50 (65) 99 Room Air 04/02/25 08:00 0.0 Vital signs, stable ,afebrile. Pulse Oximetry reflects adequate oxygenation. General: well developed, well nourished. Awake , alert, and oriented x4, resting comfortably in the bed, in no acute distress . Skin: Warm, dry, no pallor, no rash or petechiae. HEENT: Atraumatic, normocephalic, EOMI, anicteric sclera B; pink conjunctiva; PERRLA, normal oropharynx, moist oral and nasal mucosa. Tympanic membrane , nose , throat clear. Neck: Trachea midline. Supple, full range of motion, no JVD, bruit , hepatojugular reflex , lymphadenopathy or masses, or other lesions Cardiac: Regular rhythm, regular rate no murmurs, rubs, or gallops. Normal S1 and S2, no S3 noticed. PMI is normal. Respiratory: Equal breath sounds bilaterally, no tachypnea; lungs clear to auscultation bilaterally, no wheezing ,rub or rales, or crackles. Chest wall is symmetric and without deformity. No signs of trauma. Chest wall is nontender. No signs of respiratory distress. Resonance is normal upon percussion bilaterally. Gastrointestinal: Abdomen symmetric, non-distended, soft, non-tender, normal bowel sounds x4 quadrant, normoactive, no hepatosplenomegaly , no masses , no bruit, no flank pain bilaterally. No voluntary guarding, rebound, or rigidity. No tenderness to percussion. No pulsatile masses. Equal femoral pulses. No Kaur's sign or McBurney point tenderness. Back; no CVA tenderness bilaterally, no deformities. Neck and back are without deformity as well. No tenderness noted on palpation of the spinous processes. Spinous processes are midline. Cervical, thoracic, and lumbar paraspinal muscles are not tender and are without spasm. : normal external genitalia, without lesions, swelling, masses or tenderness. Musculoskeletal: Extremities, normal range of motion, non-tender, muscle strength 5/5 x 4. Negative Homans signs bilaterally on lower extremity. Distal pulses full symmetrical, no clubbing, cyanosis , edema. Locally, right lower leg plus four edema, diminished redness and tenderness, neurovascular grossly intact Neurological: Speech is clear, alert, and oriented x 4. No motor or sensory deficit, deep tendon reflexes normal, cerebellar intact. Cranial nerves II-XII intact. Psych: Alert and or appropriate, normal affect. Vascular: Good distal pulses, which are equal x4; capillary refill less than 2 seconds. Lymphatic, no lymphadenopathy. Result Diagram: 04/02/2540504/02/25405 Coagulation Studies Laboratory Tests Test 04/01/25 06:19 04/02/25 06:10 Prothrombin Time 11.0 SECONDS (9.0-12.0) INR International Normalized Ratio 1.1 INR Activated Partial Thromboplast Time 33 SECONDS (22-32) H APTT (Heparin Protocol) 90 SECONDS (45-75) H Coagulation Comments Problem\Assessment\Plan Assessment A right lower leg cellulitis Sepsis secondary to above A right lower leg acute DVT UTI Hypovolemia Acute renal failure Hypokalemia Hyponatremia Hypophosphatemia Homelessness Anemia hemoglobin 9.4 Diastolic CHF in exacerbation Additional comorbidities, history of gout of the left shoulder, depression, history of alcohol and methamphetamine abuse sober now, history of peptic ulcer disease, chronic kidney disease ventral hernia dysuria Plan IV fluids, antibiotics Correct electrolytes We will discontinue heparin infusion in the evening, and start patient on Eliquis 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
[2025-04-02] MEDS: VANCOMYCIN LEVEL IV ONE (19:10)
[2025-04-02] MEDS: mag hydrox/Alum hydrox/simeth 30ml oral suspension PO PRN (20:25)
[2025-04-03 01:30] VITALS: BP 122/67; RESP 18
[2025-04-03 01:58] VITALS: PULSE 98; O2SAT 96
[2025-04-03 06:00] VITALS: BP 133/66; PULSE 90; RESP 16; TEMP 98.5; O2SAT 93
[2025-04-03 06:36] LABS: MEAN PLATELET VOLUME 8.7 FL (7.4-10.4); RED CELL DISTRIBUTION WIDTH 15.6 % (11.5-14.5)
[2025-04-03 06:44] LABS: CREATININE 1.69 MG/DL (0.60-1.10); TOTAL CARBON DIOXIDE 25.1 MMOL/L (24-32); eCRCL 60 ML/MIN; eGFR 42 ML/MIN
[2025-04-03 10:00] VITALS: BP 121/62; PULSE 94; RESP 20; TEMP 100.6; O2SAT 97
--- NOTE | 2025-04-03 12:26 | PROGRESS NOTE ---
Daily Progress Note Providers to CC FEELS BETTER TODAY, LESS PAIN THE SWELLING IN THE right lower leg ~ Central Line/PICC still needed: No Colbert-Non Protocol Colbert Indications Met/Not Met: F/C Indications Not Met Antibiotic Timeout Antibiotic Ordered?: Yes MRSA Education MRSA Education Provided to pt: Yes Subjective As above Objective Vital Signs Date Time Temp Pulse Resp B/P (MAP) Pulse Ox O2 Delivery O2 Flow Rate FiO2 04/03/25 09:35 15 04/03/25 08:00 Room Air 04/03/25 06:00 98.5 90 133/66 (88) 93 04/02/25 08:00 0.0 Vital signs, stable ,afebrile. Pulse Oximetry reflects adequate oxygenation. General: well developed, well nourished. Awake , alert, and oriented x4, resting comfortably in the bed, in no acute distress . Skin: Warm, dry, no pallor, no rash or petechiae. HEENT: Atraumatic, normocephalic, EOMI, anicteric sclera B; pink conjunctiva; PERRLA, normal oropharynx, moist oral and nasal mucosa. Tympanic membrane , nose , throat clear. Neck: Trachea midline. Supple, full range of motion, no JVD, bruit , hepatojugular reflex , lymphadenopathy or masses, or other lesions Cardiac: Regular rhythm, regular rate no murmurs, rubs, or gallops. Normal S1 and S2, no S3 noticed. PMI is normal. Respiratory: Equal breath sounds bilaterally, no tachypnea; lungs clear to auscultation bilaterally, no wheezing ,rub or rales, or crackles. Chest wall is symmetric and without deformity. No signs of trauma. Chest wall is nontender. No signs of respiratory distress. Resonance is normal upon percussion bilaterally. Gastrointestinal: Abdomen symmetric, non-distended, soft, non-tender, normal bowel sounds x4 quadrant, normoactive, no hepatosplenomegaly , no masses , no bruit, no flank pain bilaterally. No voluntary guarding, rebound, or rigidity. No tenderness to percussion. No pulsatile masses. Equal femoral pulses. No Kaur's sign or McBurney point tenderness. Back; no CVA tenderness bilaterally, no deformities. Neck and back are without deformity as well. No tenderness noted on palpation of the spinous processes. Spinous processes are midline. Cervical, thoracic, and lumbar paraspinal muscles are not tender and are without spasm. : normal external genitalia, without lesions, swelling, masses or tenderness. Musculoskeletal: Extremities, normal range of motion, non-tender, muscle strength 5/5 x 4. Negative Homans signs bilaterally on lower extremity. Distal pulses full symmetrical, no clubbing, cyanosis , edema. Locally, right lower leg plus three edema red mild tender to palpation neurovascular grossly intact Neurological: Speech is clear, alert, and oriented x 4. No motor or sensory deficit, deep tendon reflexes normal, cerebellar intact. Cranial nerves II-XII intact. Psych: Alert and or appropriate, normal affect. Vascular: Good distal pulses, which are equal x4; capillary refill less than 2 seconds. Lymphatic, no lymphadenopathy. Result Diagram: 04/03/25 0549 04/03/25 0549 Coagulation Studies Laboratory Tests Test 04/01/25 06:19 04/02/25 13:08 Prothrombin Time 11.0 SECONDS (9.0-12.0) INR International Normalized Ratio 1.1 INR Activated Partial Thromboplast Time 33 SECONDS (22-32) H APTT (Heparin Protocol) 78 SECONDS (45-75) H Coagulation Comments Problem\Assessment\Plan Assessment A right lower leg cellulitis Sepsis secondary to above A right lower leg acute DVT UTI Hypovolemia Acute renal failure Hypokalemia Hyponatremia Hypophosphatemia Homelessness Anemia Diastolic CHF in exacerbation Additional comorbidities, history of gout of the left shoulder, depression, history of alcohol and methamphetamine abuse sober now, history of peptic ulcer disease, chronic kidney disease ventral hernia dysuria Plan IV fluids, antibiotics Correct electrolytes start patient on Eliquis 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
[2025-04-03 18:00] VITALS: BP 121/73; PULSE 118; RESP 20; TEMP 101.9; O2SAT 95
[2025-04-03 22:00] VITALS: BP 130/79; PULSE 110; RESP 14; TEMP 97.8; O2SAT 94
[2025-04-04 06:00] VITALS: BP 118/65; PULSE 106; RESP 16; TEMP 99.2; O2SAT 95
[2025-04-04 06:54] LABS: MEAN PLATELET VOLUME 8.7 FL (7.4-10.4); RED CELL DISTRIBUTION WIDTH 16.3 % (11.5-14.5)
[2025-04-04 07:44] LABS: CREATININE 1.88 MG/DL (0.60-1.10); TOTAL CARBON DIOXIDE 25.0 MMOL/L (24-32); eCRCL 54 ML/MIN; eGFR 37 ML/MIN
[2025-04-04 10:00] VITALS: BP 110/60; PULSE 104; RESP 18; TEMP 101.9; O2SAT 93
--- NOTE | 2025-04-04 12:50 | PROGRESS NOTE ---
Daily Progress Note Providers to CC Feels better today, had an episode of high fever today, ~ Central Line/PICC still needed: No Colbert-Non Protocol Colbert Indications Met/Not Met: F/C Indications Not Met Antibiotic Timeout Antibiotic Ordered?: Yes MRSA Education MRSA Education Provided to pt: Yes Subjective As above Objective Vital Signs Date Time Temp Pulse Resp B/P (MAP) Pulse Ox O2 Delivery O2 Flow Rate FiO2 04/04/25 10:00 101.9 104 18 110/60 (77) 93 Room Air 04/02/25 08:00 0.0 Vital signs, stable ,afebrile. Pulse Oximetry reflects adequate oxygenation. General: well developed, well nourished. Awake , alert, and oriented x4, resting comfortably in the bed, in no acute distress . Skin: Warm, dry, no pallor, no rash or petechiae. HEENT: Atraumatic, normocephalic, EOMI, anicteric sclera B; pink conjunctiva; PERRLA, normal oropharynx, moist oral and nasal mucosa. Tympanic membrane , nose , throat clear. Neck: Trachea midline. Supple, full range of motion, no JVD, bruit , hepatojugular reflex , lymphadenopathy or masses, or other lesions Cardiac: Regular rhythm, regular rate no murmurs, rubs, or gallops. Normal S1 and S2, no S3 noticed. PMI is normal. Respiratory: Equal breath sounds bilaterally, no tachypnea; lungs clear to auscultation bilaterally, no wheezing ,rub or rales, or crackles. Chest wall is symmetric and without deformity. No signs of trauma. Chest wall is nontender. No signs of respiratory distress. Resonance is normal upon percussion bilaterally. Gastrointestinal: Abdomen symmetric, non-distended, soft, non-tender, normal bowel sounds x4 quadrant, normoactive, no hepatosplenomegaly , no masses , no bruit, no flank pain bilaterally. No voluntary guarding, rebound, or rigidity. No tenderness to percussion. No pulsatile masses. Equal femoral pulses. No Kaur's sign or McBurney point tenderness. Back; no CVA tenderness bilaterally, no deformities. Neck and back are without deformity as well. No tenderness noted on palpation of the spinous processes. Spinous processes are midline. Cervical, thoracic, and lumbar paraspinal muscles are not tender and are without spasm. : normal external genitalia, without lesions, swelling, masses or tenderness. Musculoskeletal: Extremities, normal range of motion, non-tender, muscle strength 5/5 x 4. Negative Homans signs bilaterally on lower extremity. Distal pulses full symmetrical, no clubbing, cyanosis , edema. Locally, right lower leg plus three edema red tender to palpation neurovascular grossly intact Neurological: Speech is clear, alert, and oriented x 4. No motor or sensory deficit, deep tendon reflexes normal, cerebellar intact. Cranial nerves II-XII intact. Psych: Alert and or appropriate, normal affect. Vascular: Good distal pulses, which are equal x4; capillary refill less than 2 seconds. Lymphatic, no lymphadenopathy. Result Diagram: 04/04/25 0559 04/04/25 0559 Coagulation Studies Laboratory Tests Test 04/01/25 06:19 04/02/25 13:08 Prothrombin Time 11.0 SECONDS (9.0-12.0) INR International Normalized Ratio 1.1 INR Activated Partial Thromboplast Time 33 SECONDS (22-32) H APTT (Heparin Protocol) 78 SECONDS (45-75) H Coagulation Comments Problem\Assessment\Plan Assessment A right lower leg cellulitis Sepsis secondary to above A right lower leg acute DVT UTI Hypovolemia Acute renal failure Hypokalemia Hyponatremia Hypophosphatemia Homelessness Anemia Diastolic CHF in exacerbation Additional comorbidities, history of gout of the left shoulder, depression, history of alcohol and methamphetamine abuse sober now, history of peptic ulcer disease, chronic kidney disease ventral hernia dysuria Plan IV fluids, antibiotics Correct electrolytes start patient on Eliquis 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
[2025-04-04] MEDS: CefTRIAXone 2gm/D5W 50ml BAG 50 ML IV SCH (13:08)
--- NOTE | 2025-04-04 15:00 | RADIOLOGY REPORT ---
EXAM: CT CT LOWER EXTREMITY INDICATION: sepsis, right lower leg, advanced cellulitis/abscess TECHNIQUE: Axial images of right lower extremity without contrast have been obtained along with coronal and sagittal reformatted images. All CT scans at this facility use dose modulation, iterative reconstruction, and/or weight based dosing when appropriate to reduce radiation dose to as low as reasonably achievable. COMPARISON: None FINDINGS: BONES: No CT evidence of an acute fracture or aggressive osseous lesion. MUSCLES: No abnormal attenuation. JOINT SPACES: No joint effusion. TENDONS/LIGAMENTS: Intact. OTHER: Circumferential subcutaneous adipose tissue edema with skin thickening. No drainable fluid collection areas of soft tissue calcification. No soft tissue emphysema correlate for cellulitis/fasciitis. IMPRESSION: 1. Circumferential subcutaneous adipose tissue edema with skin thickening. 2. No drainable fluid collection. 3. No soft tissue emphysema correlate for cellulitis/fasciitis.
[2025-04-04 18:00] VITALS: BP 146/63; PULSE 120; RESP 16; TEMP 98.2; O2SAT 92
[2025-04-04 22:00] VITALS: BP 125/62; PULSE 115; RESP 16; TEMP 100.3; O2SAT 91
[2025-04-05] VITALS (8 sets, daily range): BP systolic 107–165; BP diastolic 65–86; PULSE 64–108; RESP 18–20; TEMP 96.8–100.9; O2SAT 93–100
[2025-04-05 06:31] LABS: MEAN PLATELET VOLUME 8.7 FL (7.4-10.4); RED CELL DISTRIBUTION WIDTH 16.3 % (11.5-14.5)
[2025-04-05 06:41] LABS: CREATININE 1.63 MG/DL (0.60-1.10); TOTAL CARBON DIOXIDE 26.1 MMOL/L (24-32); eCRCL 62 ML/MIN; eGFR 44 ML/MIN
[2025-04-05 09:16] LABS: PLATELET ESTIMATE NORMAL
[2025-04-05] MEDS: ringers solution, lacted 1,000 ML IV ONE ×2 (09:29→12:43)
--- NOTE | 2025-04-05 09:52 | RADIOLOGY REPORT ---
CLINICAL INFORMATION: 54 years old, Male; sepsis. TECHNIQUE: Axial CT images of the chest, abdomen, and pelvis were obtained without IV contrast. Coronal and sagittal reformatted images were obtained, reviewed, and stored. Evaluation of the parenchymal organs and vasculature is limited without IV contrast. Evaluation of the bowel and mesentery is limited without oral contrast. All CT scans at this medical facility are performed using dose modulation techniques as appropriate to a performed exam including the following: Automated exposure control was utilized; adjustment of the MA and/or KV according to patient size; and use of iterative reconstruction technique. CTDIvol = 28.87, 26.09, 0.07, 0.07 mGy DLP = 2730.46 mGy-cm COMPARISON: CT CT ABDOMEN PELVIS on DOS: 09/02/23, CT ABDOMEN PELVIS on DOS: 10/07/20, CT ABDOMEN PELVIS on DOS: 04/16/19 FINDINGS: CT CHEST: Aorta: No aneurysm. No significant atheromatous calcification. Cardiac: Heart size is within normal limits. Dense coronary artery calcification and/or stents. Mediastinum/shiva: No mass or adenopathy. Lungs: Small bilateral pleural effusions with overlying atelectasis and/or consolidation. Pulmonary arteries: No gross abnormality. Chest wall: No mass or other abnormality. Bones: No fracture or suspicious intraosseous lesions. CT ABDOMEN/PELVIS: Liver: Unremarkable. No abnormal density or focal lesion identified on noncontrast CT. Biliary: No calcified gallstones or biliary ductal dilatation. Spleen: Unremarkable. Pancreas: Moderate fatty changes in the pancreas. Adrenal glands: Unremarkable. No mass. Kidneys: No hydronephrosis. No renal or ureteral calculi identified. Aorta: No aneurysm or significant calcification. Retroperitoneum: Prominent bilateral external iliac lymph nodes, right greater than left, with the largest on the right measuring up to 5.9 x 1.8 cm in the largest on the left measuring up to 3.2 x 1.2 cm. Enlarged right inguinal lymph nodes measuring up to 3.6 x 1.8 cm. Bowel/mesentery: Mildly distended fluid-filled small bowel loops without definite focal transition point to suggest high-grade small bowel obstruction. Appendix is visualized and appears unremarkable. Moderate stool in the colon. There is liquid stool in the right colon. Pelvic organs: Grossly unremarkable. Bladder: Unremarkable. No mass. Abdominal wall: Large right ventral hernia measuring up to 7.8 x 17.7 x 13.8 cm containing loops of large and small bowel without evidence of obstruction. Bones: No fracture or focal intraosseous lesion. Moderate to severe arthritic changes in both hips with joint space narrowing and subchondral sclerosis. IMPRESSION: 1. Large right ventral hernia containing loops of large and small bowel without evidence of high-grade obstruction. Partial small-bowel obstruction can not be excluded. 2. Mildly distended fluid-filled small bowel loops without definite high-grade small bowel obstruction. There is also liquid stool in the right colon. Findings may be seen with ileus or enterocolitis in the appropriate clinical setting. Mild partial small-bowel obstruction not excluded. 3. Enlarged bilateral external iliac lymph nodes, right greater than left, and right inguinal lymph nodes. Significantly increased compared to the prior CT. Malignancy, including lymphoma or metastatic disease not excluded. Correlate with clinical findings. 4. Small bilateral pleural effusions with overlying atelectasis and/or consolidation. 5. Additional nonacute findings as described above.
[2025-04-05 10:41] LABS: PHOSPHORUS 2.6 MG/DL (2.3-4.5); PRO BRAIN NATRIURETIC PEPTIDE 4655 PG/ML (0-125)
[2025-04-05 11:05] LABS: OSMOLALITY 288 MOSM/K (280-300)
[2025-04-05] MEDS: lactose-reduced food (Ensure High Protein) 237ml bottle PO SCH (13:00)
[2025-04-05] MEDS: morphine 4 MG/ML inj SYRINge IV PRN (13:58)
--- NOTE | 2025-04-05 17:54 | PROGRESS NOTE ---
Daily Progress Note Providers to CC ~ chief complaint, right lower extremity pain lower 1/3 of the lower leg more painful Central Line/PICC still needed: No Colbert-Non Protocol Colbert Indications Met/Not Met: F/C Indications Not Met Antibiotic Timeout Antibiotic Ordered?: Yes MRSA Education MRSA Education Provided to pt: Yes Subjective As above Objective Vital Signs Date Time Temp Pulse Resp B/P (MAP) Pulse Ox O2 Delivery O2 Flow Rate FiO2 04/05/25 14:08 19 99 Room Air 04/05/25 10:00 97.2 101 134/72 (92) 04/05/25 07:30 0.0 Vital signs, stable ,afebrile. Pulse Oximetry reflects adequate oxygenation. General: well developed, well nourished. Awake , alert, and oriented x4, resting comfortably in the bed, in no acute distress . Skin: Warm, dry, no pallor, no rash or petechiae. HEENT: Atraumatic, normocephalic, EOMI, anicteric sclera B; pink conjunctiva; PERRLA, normal oropharynx, moist oral and nasal mucosa. Tympanic membrane , nose , throat clear. Neck: Trachea midline. Supple, full range of motion, no JVD, bruit , hepatojugular reflex , lymphadenopathy or masses, or other lesions Cardiac: Regular rhythm, regular rate no murmurs, rubs, or gallops. Normal S1 and S2, no S3 noticed. PMI is normal. Respiratory: Equal breath sounds bilaterally, no tachypnea; lungs clear to auscultation bilaterally, no wheezing ,rub or rales, or crackles. Chest wall is symmetric and without deformity. No signs of trauma. Chest wall is nontender. No signs of respiratory distress. Resonance is normal upon percussion bilaterally. Gastrointestinal: Abdomen symmetric, non-distended, soft, non-tender, normal bowel sounds x4 quadrant, normoactive, no hepatosplenomegaly , no masses , no bruit, no flank pain bilaterally. No voluntary guarding, rebound, or rigidity. No tenderness to percussion. No pulsatile masses. Equal femoral pulses. No Kaur's sign or McBurney point tenderness. Back; no CVA tenderness bilaterally, no deformities. Neck and back are without deformity as well. No tenderness noted on palpation of the spinous processes. Spinous processes are midline. Cervical, thoracic, and lumbar paraspinal muscles are not tender and are without spasm. : normal external genitalia, without lesions, swelling, masses or tenderness. Musculoskeletal: Extremities, normal range of motion, non-tender, muscle strength 5/5 x 4. Negative Homans signs bilaterally on lower extremity. Distal pulses full symmetrical, no clubbing, cyanosis , edema. Locally, right lower leg, plus three edema distal 1/3 plus four edema associated with significant swelling tender to palpation red Neurological: Speech is clear, alert, and oriented x 4. No motor or sensory deficit, deep tendon reflexes normal, cerebellar intact. Cranial nerves II-XII intact. Psych: Alert and or appropriate, normal affect. Vascular: Good distal pulses, which are equal x4; capillary refill less than 2 seconds. Lymphatic, no lymphadenopathy. Result Diagram: 04/05/25 0540 04/05/25 0540 Coagulation Studies Laboratory Tests Test 04/01/25 06:19 04/02/25 13:08 04/05/25 09:46 Prothrombin Time 11.0 SECONDS (9.0-12.0) INR International Normalized Ratio 1.1 INR Activated Partial Thromboplast Time 33 SECONDS (22-32) H APTT (Heparin Protocol) 78 SECONDS (45-75) H Coagulation Comments D-Dimer 5.39 MG/L FEU (0-0.50) H D-Dimer Comment Problem\Assessment\Plan Assessment A right lower leg cellulitis Sepsis secondary to above A right lower leg acute DVT UTI Hypovolemia Acute renal failure Hypokalemia Hyponatremia Hypophosphatemia Homelessness Anemia Diastolic CHF in exacerbation Additional comorbidities, history of gout of the left shoulder, depression, history of alcohol and methamphetamine abuse sober now, history of peptic ulcer disease, chronic kidney disease ventral hernia dysuria Plan IV fluids, antibiotics Orthopedic doctor consult Dr. Butler, pending Correct electrolytes start patient on Eliquis marriage and family social worker consult Additional lab work pending Wound care Reconciled home medications DVT gastropathy prophylaxis addressed Sepsis Screening Sepsis Screening Reassessment Date: Apr 05, 2025 Date of Service: Apr 05, 2025 Billing Provider: VICENTE CHAWLA MD Common Visit Codes: [id number] INP/OBS CARE(HIGH) VICENTE CHAWLA MD Apr 05, 2025 17:54
[2025-04-06] VITALS (21 sets, daily range): BP systolic 106–162; BP diastolic 48–91; PULSE 75–105; RESP 13–19; TEMP 97.4–98.6; O2SAT 90–98
[2025-04-06] MEDS: vancomycin/NS 1 GM ADD-VANTAGE 250 ML IV SCH (00:01)
[2025-04-06 06:09] LABS: MEAN PLATELET VOLUME 8.1 FL (7.4-10.4); RED CELL DISTRIBUTION WIDTH 16.0 % (11.5-14.5)
[2025-04-06 06:20] LABS: CREATININE 1.60 MG/DL (0.60-1.10); TOTAL CARBON DIOXIDE 24.8 MMOL/L (24-32); eCRCL 63 ML/MIN; eGFR 45 ML/MIN
--- NOTE | 2025-04-06 07:55 | CONSULTATION REPORT ---
History of Present Illness Providers to CC ~ Reason for Admit\Admit Dx: Right leg infection Refering MD: Nas History of Present Illness The patient is a 54-year-old homeless man who presented with a about a week's worth of pain in his right lower extremity. He is not sure if he scraped it on something were burned it on a water heater but he has had pain and swelling from the knee down. He was admitted two days ago for cellulitis. Workup has included ultrasound and CT of the lower extremity. Consultation was obtained for infection of the right lower extremity. He complains of severe pain and states he is unable to bear weight on that leg. Allergies: Coded Allergies: No Known Allergies (Unverified , 04/04/25) Home Medications Home Medications Active Reported Prilosec (Omeprazole) 40 Mg Capsule 1 Cap PO DAILY 30 Days Physical Exam Last Vital Signs Recorded: Temperature: 97.4, Source: Oral, Heart Rate: 86, Respiratory Rate: 16, BP: 109/65, Pulse Oximetry: 94, Weight: 120.000 General Appearance: alert, WD/WN, no apparent distress, mild distress EENT: PERRL/EOMI Respiratory: no respiratory distress Chest: no accessory muscle use Cardiovascular: normal peripheral pulses Gastrointestinal: normal palpation Back: normal inspection Extremities There was an open wound on the medial aspect of the right leg just above the ankle. There was some granulation tissue and necrotic appearing tissue as well with a moderate swelling from the knee down. He states the he has feeling when touching the toes and is able to move them with a great deal of pain. There does not appear to be any evidence of compartment syndrome at this time. Neurologic: oriented x4 Results Diagram Lab Result Diagram: 04/06/25 0520 04/06/25 0520 Assessment/Plan Problems/Diagnosis: (1) Cellulitis (2) Abscess of leg Additional Plan The failure would be best served with a surgical debridement in the operating room of the right lower extremity infected open wound area. This will be done as soon as OR time is available today. For now he will be NPO. I explained to him the situation and recommendation for surgery. He agrees to proceed. Problem Qualifiers (1) Cellulitis: Qualified Codes: L03.115 - Cellulitis of right lower limb IAN BARTLETT Jr., MD Apr 06, 2025 07:55
[2025-04-06 10:01] LABS: INR 1.4 INR
--- NOTE | 2025-04-06 12:35 | PROGRESS NOTE ---
Daily Progress Note Providers to CC ~ Antibiotic Timeout Antibiotic Ordered?: Yes Subjective No acute events overnight. Patient examined at bedside. No new complaints not in acute distress. Patient denies chest pain, sob, palpitations, abdominal pain, n/v/d. Vss, labs unremarkable. OR today for debridement. Objective Vital Signs Date Time Temp Pulse Resp B/P (MAP) Pulse Ox O2 Delivery O2 Flow Rate FiO2 04/06/25 11:43 17 04/06/25 08:00 94 Room Air 04/06/25 06:00 97.4 86 109/65 (80) 04/05/25 07:30 0.0 Result Diagram: 04/06/2551904/06/25519 Physical Exam General: Generalized weakness, A&Ox 3, NAD HEENT: Normocephalic, PERRLA Neck: Supple, trachea midline, no JVD Chest: Clear to auscultation bilaterally Cardiovascular: RRR, S1&S2 GI: Soft and nontender Extremities: No cyanosis/clubbing/or edema AUTOMATIC PAD MAKING MACHINE OPERATOR: CN II-XII intact, no focal deficits Musculoskeletal: No paraspinal muscle tenderness, no muscle spasm Skin: Severe ulceration of right ankle with drainage Coagulation Studies Laboratory Tests Test 04/01/25 06:19 04/02/25 13:08 04/05/25 09:46 04/06/25 09:35 Activated Partial Thromboplast Time 33 SECONDS (22-32) H APTT (Heparin Protocol) 78 SECONDS (45-75) H D-Dimer 5.39 MG/L FEU (0-0.50) H D-Dimer Comment Prothrombin Time 13.5 SECONDS (9.0-12.0) H INR International Normalized Ratio 1.4 INR Coagulation Comments Problem\Assessment\Plan Assessment & Plan Cellulitis, RLE Abscess, RLE DVT, RLE UTI Hypovolemia Prerenal LEATHA 2/2 vasomotor nephropathy Hypokalemia Hyponatremia Hypophosphatemia Homelessness Anemia Acute compensated diastolic heart failure 04/06: Eliquis DVT dose, abx, IVF, continue wound care, OR today for debridement (Dr. Hatch) Date of Service: Apr 06, 2025 Billing Provider: MARYBETH CONTRERAS Common Visit Codes: [id number] INP/OBS CARE(HIGH) MARYBETH CONTRERAS Apr 06, 2025 12:35
[2025-04-06] MEDS ORDERED: fentaNYL/PF 50MCG/1 ML 2ML syringe IV PRN (15:15)
[2025-04-06] MEDS ORDERED: ondansetron/PF 4mg/2ml inj IV PRN (15:15)
[2025-04-06] MEDS ORDERED: labetalol 20mg/4ml (5mg/ml) syringe IV PRN (15:15)
[2025-04-06] MEDS ORDERED: hydrALAZINE 20mg/ml inj. IV PRN (15:15)
[2025-04-06] MEDS ORDERED: HYDROmorphone/PF 0.2 MG/ML SYRINGE IV PRN (15:15)
[2025-04-06] MEDS: ringers solution, lacted 1,000 ML IV SCH (15:15)
[2025-04-06] MEDS ORDERED: fentaNYL /PF 50mcg/ml 5ml ampule ONE (16:50)
[2025-04-06] MEDS ORDERED: midazolam 1 mg/ML 2ml injection ONE (16:50)
[2025-04-06] MEDS ORDERED: propofol inj 20 ML IV ONE (16:50)
[2025-04-06] MEDS ORDERED: fentaNYL/PF 50MCG/1 ML 2ML syringe ONE (17:04)
[2025-04-06] MEDS ORDERED: morphine 10mg/ml inj. ONE (17:13)
--- NOTE | 2025-04-06 17:31 | OPERATIVE REPORT ---
Operative Report Providers to ~ Date of Procedure: Apr 06, 2025 Pre-Operative Diagnosis: Right medial lower leg abscess Post-Operative Diagnosis SAME as PRE-Op Procedure Performed Debridement of right lower leg medial area with placement of wound VAC Surgeon: Poncho Hatch MD Agricultural Labor Camp Manager None Anesthesiologist: Ender Mike Type of Anesthesia: General Findings: After debridement there was a 9 cm x 9 cm full-thickness loss of the soft tissue on the medial ankle region Complications None Prosthetics\Implants used: None Estimated Blood Loss: 20 mL Specimen Removed: Deep wound culture Description of Procedure: The patient is a 54-year-old man who presented with a proximally a week of pain and swelling in the lower leg. He had a festering granulomatous type wound on the medial ankle with severe pain. Surgery is indicated to eradicate infection. Risks and benefits were discussed with the patient. The main risk is failure to achieve wound closure, recurrent infection, and eventual need for amputation. He agreed to proceed with debridement today. After the anesthetic was given the leg was prepped and draped in usual manner with a tourniquet on the calf. The large wound on the medial ankle was probed and was very friable tissue which broke down immediately. Curette was used to debride as well as a rongeur. No bone was exposed the during the debridement. Pulse lavage 3 L and another L of antibiotic saline were used to debride the area. Sharp dissection was done for nonviable tissue. Small bleeders were cauterized and wound VAC was then placed. Tourniquet was released and the leg perfused well without excessive bleeding. The patient was awakened and taken to the recovery room in stable condition. He tolerated the procedure well. PONCHO HATCH Jr., MD Apr 06, 2025 17:31
[2025-04-06] MEDS: acetaminophen 1,000mg/100ml IV 100 ML IV PRN (17:53)
[2025-04-06] MEDS: HYDROmorphone/PF 0.2 MG/ML SYRINGE IV PRN (17:54)
[2025-04-06] MEDS: fentaNYL/PF 50MCG/1 ML 2ML syringe IV PRN (18:13)
[2025-04-07] MEDS: ondansetron/PF 4mg/2ml inj IV PRN (00:30)
[2025-04-07 06:00] VITALS: BP 100/59; PULSE 81; RESP 16; TEMP 97.1; O2SAT 93
[2025-04-07 07:29] LABS: MEAN PLATELET VOLUME 8.1 FL (7.4-10.4); RED CELL DISTRIBUTION WIDTH 16.5 % (11.5-14.5)
[2025-04-07 07:34] LABS: CREATININE 1.50 MG/DL (0.60-1.10); TOTAL CARBON DIOXIDE 23.9 MMOL/L (24-32); eCRCL 68 ML/MIN; eGFR 48 ML/MIN
[2025-04-07 07:35] VITALS: RESP 16; O2SAT 96
[2025-04-07] MEDS ORDERED: CefTRIAXone 2gm/D5W 50ml BAG 50 ML IV SCH (08:00)
[2025-04-07] MEDS: cefepime 1GM in D5W 50mL 50 ML IV SCH (09:51)
[2025-04-07 10:00] VITALS: BP 133/74; PULSE 84; RESP 16; TEMP 98.6; O2SAT 97
[2025-04-07 10:28] LABS: URINE AMPHETAMINE SCREEN NEGATIVE (Neg); URINE BARBITUATE SCREEN NEGATIVE (Neg); URINE BENZODIAZEPINES SCREEN POSITIVE (Neg); URINE CANNABINOID SCREEN NEGATIVE (Neg); URINE COCAINE SCREEN NEGATIVE (Neg); URINE METHADONE SCREEN POSITIVE (Neg); URINE OPIATE SCREEN POSITIVE (Neg); URINE PHENCYCLIDINE SCREEN NEGATIVE (Neg)
--- NOTE | 2025-04-07 11:26 | PROGRESS NOTE ---
Daily Progress Note Providers to CC ~ Antibiotic Timeout Antibiotic Ordered?: Yes Subjective No acute events overnight. Patient examined at bedside. No new complaints not in acute distress. Patient denies chest pain, sob, palpitations, abdominal pain, n/v/d. Vss, labs unremarkable. s/p right ankle wound debridement and wound vac placement on 04/06. Objective Vital Signs Date Time Temp Pulse Resp B/P (MAP) Pulse Ox O2 Delivery O2 Flow Rate FiO2 04/07/25 09:51 14 04/07/25 07:35 96 Room Air 04/07/25 06:00 97.1 81 100/59 (73) 04/06/25 23:00 2.0 Result Diagram: 04/07/2572004/07/25720 Physical Exam General: Generalized weakness, A&Ox 3, NAD HEENT: Normocephalic, PERRLA Neck: Supple, trachea midline, no JVD Chest: Clear to auscultation bilaterally Cardiovascular: RRR, S1&S2 GI: Soft and nontender Extremities: No cyanosis/clubbing/or edema FLOOR ASSEMBLER: CN II-XII intact, no focal deficits Musculoskeletal: No paraspinal muscle tenderness, no muscle spasm Skin: Wound vac in right ankle Coagulation Studies Laboratory Tests Test 04/01/25 06:19 04/02/25 13:08 04/05/25 09:46 04/06/25 09:35 Activated Partial Thromboplast Time 33 SECONDS (22-32) H APTT (Heparin Protocol) 78 SECONDS (45-75) H D-Dimer 5.39 MG/L FEU (0-0.50) H D-Dimer Comment Prothrombin Time 13.5 SECONDS (9.0-12.0) H INR International Normalized Ratio 1.4 INR Coagulation Comments Problem\Assessment\Plan Assessment & Plan Cellulitis, RLE Abscess, RLE DVT, RLE UTI Hypovolemia Prerenal LEATHA 2/2 vasomotor nephropathy Hypokalemia Hyponatremia Hypophosphatemia Homelessness Anemia Acute compensated diastolic heart failure 04/06: Eliquis DVT dose, abx, IVF, continue wound care, OR today for debridement and wound vac placement (Dr. Hatch) 04/07: consulted ID Dr. Joseph Date of Service: Apr 07, 2025 Billing Provider: MARYBETH CONTRERAS SUGARCANE RESEARCH TECHNICIAN Common Visit Codes: [id number] INP/OBS CARE(HIGH) MARYBETH CONTRERAS SUGARCANE RESEARCH TECHNICIAN Apr 07, 2025 11:26
[2025-04-07] MEDS: ringers solution, lacted 1,000 ML IV SCH (11:54)
--- NOTE | 2025-04-07 12:39 | PROGRESS NOTE ---
Progress Note Ortho Ortho Post Op Day #: 1 Progress Note pain better ROS ROS No new complaints Exam Exam Comments wound vac in place, cultures pending Problem/Assessment/Plan Problems/Diagnosis: (1) Cellulitis (2) Abscess of leg Additional Plan will likely end up with BKA, wound vac for now, may need further debridement Results/Orders Result Diagram: 04/07/25 0721 04/07/25720 Problem Qualifiers (1) Cellulitis: Qualified Codes: L03.115 - Cellulitis of right lower limb IAN BARTLETT Jr., MD Apr 07, 2025 12:39
[2025-04-07] MEDS: VANCOMYCIN LEVEL IV ONE (12:40)
[2025-04-07] MEDS: CefTRIAXone 2gm/D5W 50ml BAG 50 ML IV SCH (14:02)
--- NOTE | 2025-04-07 14:08 | CONSULTATION REPORT - RESIDENT ---
Consult Providers to CC Resident Creating Document: GRUPOMARTINEZHEMA VICTOR, RES CC: LUBNA WETZEL MD History of Present Illness Reason for Admit\Complaint: Right lower extremity abscess History of Present Illness 54-year-old male with a PMH of CKD, dysuria, arthritis and ventral hernia presented to the ED in view of right lower extremity pain. Patient states that he tripped and fell, had an injury to the right ankle recently. Patient's started to have pain sharp in character 10/10 in severity nonradiating which worsens with movement over the last 3-4 days. Patient had associated fever and chills. Patient had very great difficulty moving the ankle. Patient also adds that he had a CAT scratch a few weeks ago. Also had history of cellulitis in the past that he recovered from pretty well. ID is consulted in view of abscess and cellulitis of the right lower extremity. Allergies: Coded Allergies: No Known Allergies (Unverified , 04/04/25) Home Medications Home Medications Active Reported Prilosec (Omeprazole) 40 Mg Capsule 1 Cap PO DAILY 30 Days Past Medical History Past Medical History CKD Cellulitis Hernia Past Surgical History Surgical History Comment None Past Social History Social History Comment Lives at home by himself History of IV methamphetamine use until weeks ago History of marijuana smoking until six months ago, quit Denies tobacco smoking, alcohol consumption Exam Vitals: Vital Signs Date Time Temp Pulse Resp B/P (MAP) Pulse Ox O2 Delivery O2 Flow Rate FiO2 04/07/25 10:00 98.6 84 16 133/74 (93) 97 Nasal Cannula 2.0 General: General: Morbidly obese middle-aged man, Alert, awake, oriented, not in acute distress HEENT: PERRLA, no icterus, pallor, lymphadenopathy, carotid bruit Respiratory system: Bilateral vesicular breath sounds heard, no adventitious breath sounds CVS: S1-S2 heard, no murmurs/rubs/gallop GI: A large ventral hernia present in the right side of the belly, Soft, nontender, no organomegaly, no guarding/rigidity, bowel sounds present Neuro: Mental status exam: alert and consciousness, orientation, memory, speech intact - Cranial nerve test: Cranial nerves 2-12 intact - Motor system: Nutrition, Tone 3+, Power 5/5, no involuntary movements - Sensory system: Intact - Reflex testing: Biceps, triceps and knee reflexes 2+ - Cerebellar: Normal Extremities: Right lower extremity with one linear shallow lacerated ulcer in healing stage with definite borders, large irregular shaped with definite borders laceration present in the medial side of the right leg that is currently in dressing. Peripheral pulses present bilaterally 2+, Skin: Warm and dry Diagnostic Data Last Recorded Lab Results: 04/07/25 0721 04/07/25 0721 Diagnostic Data: Laboratory Tests Test 04/01/25 06:19 04/02/25 13:08 04/05/25 09:46 04/06/25 09:35 Activated Partial Thromboplast Time 33 SECONDS (22-32) H APTT (Heparin Protocol) 78 SECONDS (45-75) H D-Dimer 5.39 MG/L FEU (0-0.50) H D-Dimer Comment Prothrombin Time 13.5 SECONDS (9.0-12.0) H INR International Normalized Ratio 1.4 INR Coagulation Comments Additional Plan Assessment: A 54-year-old male with PMH of CKD, cellulitis presented to the ED in view of right lower extremity pain, wound. Patient is admitted for the evaluation management of cellulitis, right lower extremity abscess. ID is consulted for the management of antibiotics. Plan: Right lower extremity abscess s/p debridement on 04/06/2025 Right lower extremity cellulitis CT lower extremity: Circumferential subcutaneous adipose tissue edema with skin thickening. Vascular ultrasound with acute nonocclusive thrombus at right popliteal vein. Patient has peripheral pulses Patient was initially receiving vancomycin and cefepime Discontinue cefepime Continue vancomycin (day two) and started on IV ceftriaxone (day one) Continue the antibiotic combination for at least 10 days, the choice and course of antibiotics will be decided based on the discharge disposition. Homeless rn social services and family preservation caseworker Disposition: Continue antibiotics as per above, ID team will continue to follow up with the patient Hema Redd MD Internal Medicine, PGY 2 Agree with above note. Patient seen and examined with Dr. Redd. He is not diabetic, and he appears to have good arterial supply. Medial right ankle has been debrided. He will need extensive wound care, but I do not think he needs amputation at this time. Continue antibiotics and follow up cultures. Date of Service: Apr 07, 2025 Billing Provider: LUBNA WETZEL MD, SIVA, RES Apr 07, 2025 14:08 LUBNA WETZEL MD Apr 07, 2025 17:15
[2025-04-07] MEDS: magnesium hydroxide 30ml (MOM) UD suspension PO PRN (14:12)
[2025-04-07 18:00] VITALS: BP 120/86; PULSE 82; RESP 18; TEMP 98.1; O2SAT 92
[2025-04-07] MEDS ORDERED: heparin, porcine 5000 units/ml vial SQ SCH (20:00)
[2025-04-07 21:29] LABS: LEUKOCYTE ESTERASE ,URINE NEGATIVE (Neg); NITRITES, URINE NEGATIVE (Neg); OCCULT BLOOD,URINE LARGE (Neg)
[2025-04-07 22:00] VITALS: BP 127/73; PULSE 93; RESP 16; TEMP 99.7; O2SAT 97
[2025-04-07 22:21] LABS: UA COLLECTION TYPE VOIDED
[2025-04-07 22:28] LABS: SQUAMOUS EPITHELIAL CELL,UR NONE SEEN /LPF (FEW)
[2025-04-08] MEDS: VANCOMYCIN 750MG IV in NS 250 ML IV SCH (00:11)
[2025-04-08 06:00] VITALS: BP 101/57; PULSE 79; RESP 15; TEMP 98.5; O2SAT 91
[2025-04-08 06:15] LABS: MEAN PLATELET VOLUME 7.9 FL (7.4-10.4); RED CELL DISTRIBUTION WIDTH 16.2 % (11.5-14.5)
[2025-04-08 06:37] LABS: % IRON SATURATION 17 % (11-46)
[2025-04-08 07:05] LABS: CREATININE 1.40 MG/DL (0.60-1.10); TOTAL CARBON DIOXIDE 26.7 MMOL/L (24-32); eCRCL 72 ML/MIN; eGFR 52 ML/MIN
--- NOTE | 2025-04-08 08:25 | PROGRESS NOTE ---
Progress Note Ortho Ortho Post Op Day #: 2 ROS ROS No new complaints Exam Exam: Alert and Oreinted x4 Problem/Assessment/Plan Assessment\Plan: Doing Well, Cont. Physicial Therapy Problems/Diagnosis: (1) Cellulitis (2) Abscess of leg Additional Plan continue wound vac Results/Orders Result Diagram: 04/08/2552004/08/25520 Problem Qualifiers (1) Cellulitis: Qualified Codes: L03.115 - Cellulitis of right lower limb IAN BARTLETT Jr., MD Apr 08, 2025 08:25
[2025-04-08 10:00] VITALS: BP 125/64; PULSE 72; RESP 18; TEMP 97.6; O2SAT 96
--- NOTE | 2025-04-08 10:38 | PROGRESS NOTE- Residence ---
Progress Note - Resident Providers to CC Resident Creating Document: HEMA COREAS, MARCELLA CC: LUBNA WETZEL MD ~ Antibiotic Timeout Antibiotic Ordered?: Yes Subjective Patient is seen and examined at bedside. Patient is ulcers/chronic nonhealing wound on the right lower extremity seems to be healing well. Patient continues to have wound VAC. Last night, patient had extreme pain requiring pain meds frequently. Besides this patient had soft blood pressures this morning. However does not indicate septic shock. Objective Vital Signs Date Time Temp Pulse Resp B/P (MAP) Pulse Ox O2 Delivery O2 Flow Rate FiO2 04/08/25 07:58 15 04/08/25 06:00 98.5 79 101/57 (72) 91 Room Air 04/07/25 10:00 2.0 Result Diagram: 04/08/2552004/08/25520 General: Morbidly obese middle-aged man, Alert, awake, oriented, not in acute distress HEENT: PERRLA, no icterus, pallor, lymphadenopathy, carotid bruit Respiratory system: Bilateral vesicular breath sounds heard, no adventitious breath sounds CVS: S1-S2 heard, no murmurs/rubs/gallop GI: A large ventral hernia present in the right side of the belly, Soft, nontender, no organomegaly, no guarding/rigidity, bowel sounds present Neuro: No focal neurological deficits Extremities: Right lower extremity with one linear shallow lacerated ulcer in healing stage with definite borders, large irregular shaped with definite borders laceration present in the medial side of the right leg that is currently in dressing (improving)-has wound VAC in place. Peripheral pulses present bilaterally 2+, Skin: Warm and dry Coagulation Studies Laboratory Tests Test 04/01/25 06:19 04/02/25 13:08 04/05/25 09:46 04/06/25 09:35 Activated Partial Thromboplast Time 33 SECONDS (22-32) H APTT (Heparin Protocol) 78 SECONDS (45-75) H D-Dimer 5.39 MG/L FEU (0-0.50) H D-Dimer Comment Prothrombin Time 13.5 SECONDS (9.0-12.0) H INR International Normalized Ratio 1.4 INR Coagulation Comments Assessment Assessment A 54-year-old male with PMH of CKD, cellulitis presented to the ED in view of right lower extremity pain, wound. Patient is admitted for the evaluation management of cellulitis, right lower extremity abscess. ID is consulted for the management of antibiotics. Plan Plan Right lower extremity abscess s/p debridement on 04/06/2025 Right lower extremity cellulitis Continue vancomycin (day 3) and started on IV ceftriaxone (day 2) Continue the antibiotic combination for at least 10 days, patient will continue to require IV antibiotics, discharge disposition based on the above requirement. ID follow up as outpatient Homeless supervisor customer services and correctional case manager Disposition: Continue antibiotics as per above, ID team will continue to follow up with the patient. Hema Coreas MD Internal Medicine, PGY 2 Agree with above note. Pt seen and examined with Dr. Coreas. Will need placement at medical rehab facility given wound care needs and social situation. Date of Service: Apr 08, 2025 Billing Provider: DAMARI BALTAZAR MD, SIVA, RES Apr 08, 2025 10:38 LUBNA WETZEL MD Apr 08, 2025 10:51
--- NOTE | 2025-04-08 11:26 | PROGRESS NOTE ---
Daily Progress Note Providers to CC ~ Antibiotic Timeout Antibiotic Ordered?: Yes Subjective No acute events overnight. Patient examined at bedside. No new complaints not in acute distress. Patient denies chest pain, sob, palpitations, abdominal pain, n/v/d. Vss, labs unremarkable. s/p right ankle wound debridement and wound vac placement on 04/06. Requires continued IV vancomycin and Rocephin. Objective Vital Signs Date Time Temp Pulse Resp B/P (MAP) Pulse Ox O2 Delivery O2 Flow Rate FiO2 04/08/25 07:58 15 04/08/25 06:00 98.5 79 101/57 (72) 91 Room Air 04/07/25 10:00 2.0 Result Diagram: 04/08/2552004/08/25520 Physical Exam General: Generalized weakness, A&Ox 3, NAD HEENT: Normocephalic, PERRLA Neck: Supple, trachea midline, no JVD Chest: Clear to auscultation bilaterally Cardiovascular: RRR, S1&S2 GI: Soft and nontender Extremities: No cyanosis/clubbing/or edema BABY DOCTOR: CN II-XII intact, no focal deficits Musculoskeletal: No paraspinal muscle tenderness, no muscle spasm Skin: Wound vac in right ankle Coagulation Studies Laboratory Tests Test 04/01/25 06:19 04/02/25 13:08 04/05/25 09:46 04/06/25 09:35 Activated Partial Thromboplast Time 33 SECONDS (22-32) H APTT (Heparin Protocol) 78 SECONDS (45-75) H D-Dimer 5.39 MG/L FEU (0-0.50) H D-Dimer Comment Prothrombin Time 13.5 SECONDS (9.0-12.0) H INR International Normalized Ratio 1.4 INR Coagulation Comments Problem\Assessment\Plan Assessment & Plan Cellulitis, RLE Abscess, RLE DVT, RLE UTI Hypovolemia Prerenal LEATHA 2/2 vasomotor nephropathy Hypokalemia Hyponatremia Hypophosphatemia Homelessness Anemia Acute compensated diastolic heart failure 04/06: Eliquis DVT dose, abx, IVF, continue wound care, OR today for debridement and wound vac placement (Dr. Hatch) 04/07: consulted ID Dr. Joseph 04/08: needs vanco and ceftriaxone, pending PT eval Date of Service: Apr 08, 2025 Billing Provider: MARYBETH CONTRERAS Common Visit Codes: [id number] INP/OBS CARE(HIGH) MARYBETH CONTRERAS Apr 08, 2025 11:26
[2025-04-08 18:00] VITALS: BP 138/65; PULSE 112; RESP 16; TEMP 98.2; O2SAT 97
[2025-04-08 22:00] VITALS: BP 153/76; PULSE 79; RESP 16; TEMP 99; O2SAT 93
[2025-04-09 06:00] VITALS: BP 151/80; PULSE 71; RESP 17; TEMP 98.1; O2SAT 98
[2025-04-09 06:10] LABS: CREATININE 1.55 MG/DL (0.60-1.10); TOTAL CARBON DIOXIDE 28.4 MMOL/L (24-32); eCRCL 65 ML/MIN; eGFR 47 ML/MIN
[2025-04-09 06:16] LABS: MEAN PLATELET VOLUME 7.8 FL (7.4-10.4); RED CELL DISTRIBUTION WIDTH 15.8 % (11.5-14.5)
[2025-04-09 08:00] VITALS: RESP 17; O2SAT 98
[2025-04-09 08:40] VITALS: RESP 17; O2SAT 98
[2025-04-09 10:00] VITALS: BP 132/71; PULSE 79; RESP 16; TEMP 98; O2SAT 95
[2025-04-09 11:11] VITALS: BP_SYST 150; PULSE 75
[2025-04-09] MEDS: VANCOMYCIN LEVEL IV ONE (13:17)
[2025-04-09 13:30] VITALS: RESP 16
[2025-04-09] MEDS: vancomycin inj 500 MG in normal saline 100ml IV soln 100 ML IV SCH (14:00)
--- NOTE | 2025-04-09 14:37 | DISCHARGE SUMMARY ---
Discharge Summary Providers to CC ~ Discharge Summary Admission Diagnosis: Right medial lower leg abscess Hospital Course DATE OF ADMISSION: 04/01/25 DATE OF DISCHARGE: 04/09/25 Discharge Diagnosis\Comment: Cellulitis, RLE Abscess, RLE DVT, RLE UTI Hypovolemia Prerenal LEATHA 2/2 vasomotor nephropathy Hypokalemia Hyponatremia Hypophosphatemia Homelessness Anemia Acute compensated diastolic heart failure Operations\Procedures: Right medial lower leg wound debridement and wound VAC placement Consultants: Orthopedic surgeon Dr. Hatch, [facility]ota Complications: None Condition on DC: Stable for transfer Discharge Summary: Hospital Course Rocky Roman is a 54-year-old male with a past medical history of chronic alcoholism, methamphetamine abuse, diastolic heart failure, CKD who presented to the ED with chief complaint of right lower extremity pain, edema, erythema. Diagnostic findings were notable for hypokalemia of 2.9, renal insufficiency, elevated D-dimer, elevated procal, venous ultrasound revealing nonocclusive acute DVT in right popliteal vein, CT suggesting cellulitis without evidence of fluid collection. Patient was treated with intravenous fluids, empirical antibio tics, anticoagulant, potassium supplement. Case was consulted with orthopedic surgeon Dr. Hatch and patient underwent debridement of right medial lower leg with findings of 9 cm x 9 cm full-thickness loss of the soft tissue on the medial ankle region. Case was consulted with ID Dr. Joseph. Patient did not experience further complications throughout the entire hospital stay and made a good recovery. Patient was seen and examined on the day of discharge. On day of discharge, vss and labs unremarkable. All labs, diagnostic workups, discharge plan discussed with patient in details during visit before discharge. All questions and concerns answered to the best of my professional knowledge. Patient is cleared for discharge from orthopedic and ID standpoint with wound care and 2 additional weeks of IV vancomycin and ceftriaxone. Patient may undergo a repeat surgical intervention if wound care fails per Dr. Hatch. Patient is to be discharged to rehab for continued management. Physical Exam General: Generalized weakness, A&Ox 3, NAD HEENT: Normocephalic, PERRLA Neck: Supple, trachea midline, no JVD Chest: Clear to auscultation bilaterally Cardiovascular: RRR, S1&S2 GI: Soft and nontender Extremities: No cyanosis/clubbing/or edema PLUG MAKER: CN II-XII intact, no focal deficits Musculoskeletal: No paraspinal muscle tenderness, no muscle spasm Skin: Wound vac in right ankle *Problems/Diagnosis: (1) Cellulitis Status: Acute (2) Abscess of leg Total Time Spent on D/C: > 30 Minutes Date of Service: Apr 09, 2025 Billing Provider: MARYBETH CONTRERAS Common Visit Codes: 60718-HTU/OBS DISCH DAY >30min Problem Qualifiers (1) Cellulitis: Qualified Codes: L03.115 - Cellulitis of right lower limb MARYBETH CONTRERAS Apr 09, 2025 14:36
--- NOTE | 2025-04-09 14:39 | PROGRESS NOTE- Residence ---
Progress Note - Resident Providers to CC Resident Creating Document: HEMA COREAS RES CC: DUTCH WANG DO ~ Antibiotic Timeout Antibiotic Ordered?: Yes Subjective Patient is seen and examined at bedside. Patient's wound VAC was replaced today. Patient is feeling much better, pain controlled with medications. Objective Vital Signs Date Time Temp Pulse Resp B/P (MAP) Pulse Ox O2 Delivery O2 Flow Rate FiO2 04/09/25 12:30 16 04/09/25 11:11 75 04/09/25 08:40 98 Room Air 04/09/25 06:00 98.1 151/80 (103) 04/07/25 10:00 2.0 Result Diagram: 04/09/25 0500 04/09/25 0500 General: Morbidly obese middle-aged man, Alert, awake, oriented, not in acute distress HEENT: PERRLA, no icterus, pallor, lymphadenopathy, carotid bruit Respiratory system: Bilateral vesicular breath sounds heard, no adventitious breath sounds CVS: S1-S2 heard, no murmurs/rubs/gallop GI: A large ventral hernia present in the right side of the belly, Soft, nontender, no organomegaly, no guarding/rigidity, bowel sounds present Neuro: No focal neurological deficits Extremities: Right lower extremity with one linear shallow lacerated ulcer in healing stage with definite borders, large irregular shaped with definite borders laceration present in the medial side of the right leg that is currently in dressing (improving)-has wound VAC in place. Peripheral pulses present bilaterally 2+, Skin: Warm and dry Coagulation Studies Laboratory Tests Test 04/01/25 06:19 04/02/25 13:08 04/05/25 09:46 04/06/25 09:35 Activated Partial Thromboplast Time 33 SECONDS (22-32) H APTT (Heparin Protocol) 78 SECONDS (45-75) H D-Dimer 5.39 MG/L FEU (0-0.50) H D-Dimer Comment Prothrombin Time 13.5 SECONDS (9.0-12.0) H INR International Normalized Ratio 1.4 INR Coagulation Comments Assessment Assessment A 54-year-old male with PMH of CKD, cellulitis presented to the ED in view of right lower extremity pain, wound. Patient is admitted for the evaluation management of cellulitis, right lower extremity abscess. ID is consulted for the management of antibiotics. Plan Plan Right lower extremity abscess s/p debridement on 04/06/2025 Right lower extremity cellulitis Continue vancomycin (day 4) and started on IV ceftriaxone (day 3) Transitioned to doxycycline 100 mg p.o. b.i.d. and Keflex 1 g q.8h for an additional 10 days starting from tomorrow. As per the above antibiotics and p.o., plan for outpatient antibiotic management at the time of discharge is made. There is a component of cat scratch before all of this started. 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 Hema Coreas MD Internal Medicine, PGY 2 Date of Service: Apr 09, 2025 Billing Provider: DUTCH WANG DO Addendum Patient seen and examined with Dr. Coreas. Agree with the above assessment and plan. Patient had wound vac on and was planned for SNF today. His debridement was superficial so another 10 days of PO therapy recommended with Doxy/Keflex to cover a microbiologic ddx of MarilinllaMaria Del Carmen Step SUDDAPALLI, SIVA, RES Apr 09, 2025 14:39 DUTCH WANG DO Apr 09, 2025 23:02
[2025-04-10] MEDS ORDERED: DOXYCYCLINE 100MG CAPSULE PO SCH (08:00)
[2025-04-11] MEDS ORDERED: VANCOMYCIN LEVEL IV ONE (01:30)
== END 2025-04-09 16:10 | DRG 720 ==
LOC: ER 04:28 → ED HOLD 08:14 → ORTHO 4S 09:35
PROVIDERS: ADMIT Family Medicine; ATTEND Family Medicine
PROC: 0JBQ0ZZ Excision of Right Foot Subcutaneous Tissue and Fascia, Open Approach (ICD-10-PCS; principal; 2025-04-06 16:42)
PROC: 05HD33Z Insertion of Infusion Device into Right Cephalic Vein, Percutaneous Approach (ICD-10-PCS; 2025-04-09)
PROC: B54MZZA Ultrasonography of Right Upper Extremity Veins, Guidance (ICD-10-PCS; 2025-04-09)
DX: A41.9 Sepsis, unspecified organism (principal); N17.0 Acute kidney failure with tubular necrosis; I50.33 Acute on chronic diastolic (congestive) heart failure; I82.431 Acute embolism and thrombosis of right popliteal vein; E83.39 Other disorders of phosphorus metabolism; E87.1 Hypo-osmolality and hyponatremia; E87.6 Hypokalemia; K21.9 Gastro-esophageal reflux disease without esophagitis; N39.0 Urinary tract infection, site not specified; F10.20 Alcohol dependence, uncomplicated; F15.10 Other stimulant abuse, uncomplicated; F32.A Depression, unspecified; F10.21 Alcohol dependence, in remission; L02.413 Cutaneous abscess of right upper limb; L03.115 Cellulitis of right lower limb; N18.9 Chronic kidney disease, unspecified; Z59.00 Homelessness unspecified; Z79.899 Other long term (current) drug therapy; Z87.11 Personal history of peptic ulcer disease
CPT/HCPCS: 36410; 36415; 71045; 71250; 73700; 74176; 76937; 80048; 80053; 80061; 80202; 80305; 81001; 82550; 82728; 82948; 83036; 83540; 83550; 83605; 83690; 83735; 83880; 83930; 84100; 84145; 85007; 85008; 85025; 85379; 85610; 85651; 85730; 86140; 87040; 87070; 87075; 87077; 87081; 87088; 87186; 93005; 93971; 96365; 96375; 97110; 97116; 97161; 97164; 97530; 99285; A4615; A4618; A6209; A6222; A6253; A6258; A6446; A6449; A7000; C1751; G0378; J0131; J0692; J0696; J1171; J1200; J1644; J2250; J2270; J2274; J2405; J2543; J2704; J3010; J3373; J3480; J3490; J7030; J7050; J7120; Q0163